=== PATIENT | male | born 1950 | race Caucasian/White ===

== ENCOUNTER → 2017-07-19 | Outpatient (CLI) | payer MEDICARE, OTHER ==
[~2017-07-19] MED LIST: HYDROCODONE-AP1 EAC1; MVI; Z.0.AMBIEN10 MG PO; Z.0.ASPIRIN CHEW81 M PO; Z.0.CALCIUM600 MG PO; Z.0.DILAUDID4 MG; Z.0.FINASTERIDE5 MG PO; Z.0.FLOMAX0.4 MG PO; [UNRECOGNIZED DRUG - OTHER] PO; [UNRECOGNIZED DRUG - OTHER] PO
--- NOTE | 2017-07-24 14:20 | Diagnostic Imaging Report ---
Examination: CT LUMBAR SPINE WITHOUT CONTRAST History: Acute right-sided low back pain; status post fusion surgery. Comparison studies: None Technique: Axial images were obtained through the lumbar spine from T11. Coronal and sagittal reconstructions obtained from the axial data. Intravenous contrast: None Findings: Surgery: Prior decompressive laminectomies from L3 through L5 with bipedicular screws and posterior fixation from L2 through L5. No lucency surrounding the hardware to suggest failure. The usual 5 non-rib bearing lumbar vertebral bodies are present. Alignment: Normal lordosis. No scoliosis. Soft tissues: Atherosclerotic calcification of the abdominal aorta and its branches. Paraspinal muscles: No abnormalities. Sacroiliac joints: Bridging osteophytosis at the anterosuperior aspect of the joints. Vertebrae: No fractures, infection or neoplasm. Degenerative changes: L1-L2 through L3-L4: No abnormalities. L4-L5: Mild left neural foraminal narrowing due to left facet arthropathy. No right foraminal or canal stenosis. L5-S1: No abnormalities. IMPRESSION: 1. Prior lumbar spine surgery without evidence of hardware failure. 2. Mild degenerative changes at L4-L5 without canal or significant (not moderate to severe) foraminal stenosis. Signed by: Dr. Bisi Martinez M.D. on 07/24/2017 2:16 PM
== END ==
LOC: CT 12:35
PROVIDERS: ATTEND Psychiatry & Neurology Clinical Neurophysiology
DX: M54.5 Low back pain (principal)
CPT/HCPCS: 72131

== ENCOUNTER → 2017-08-21 | Outpatient (CLI) | payer MEDICARE, OTHER ==
--- NOTE | 2017-08-21 17:54 | Diagnostic Imaging Report ---
Examination: CT Thoracic Spine without Contrast History: Back pain. Comparison studies: None Technique: Axial images were reformatted obtained through the thoracic spine. Coronal and sagittal reconstructions obtained from the axial data. Intravenous contrast: None Findings: Alignment: Normal kyphosis. No scoliosis. Soft tissues: Atherosclerotic calcification of the thoracic and abdominal aorta. Calcified granulomas in the left upper lobe and calcified adenopathy in the left hilum. These findings are related to prior granulomatous disease. Paraspinal muscles: No abnormalities. Thecal sac: Again demonstrated is a spine stimulator with distal tip located at T10. Vertebrae: No fractures, infection or neoplasm. Partially visualized bilateral pedicle screws at L2. Degenerative changes: Bridging anterior osteophytosis. Additional finding: Partially visualized anterior cervical discectomy and fusion at C6 and C7. IMPRESSION: 1. No acute thoracic spine abnormality. 2. Partially visualized pedicle screws at L2 and spine stimulator with tip at T10. Signed by: Dr. Bisi Martinez M.D. on 08/21/2017 5:51 PM
== END ==
LOC: CT 11:37
PROVIDERS: ATTEND Psychiatry & Neurology Clinical Neurophysiology
DX: M54.6 Pain in thoracic spine (principal)
CPT/HCPCS: 72128

== ENCOUNTER 2018-02-19 21:15 | Observation (INO) | payer MEDICARE, OTHER ==
[~2018-02-19] VITALS: Ht 182.9 cm; Wt 79.4 kg
[2018-02-19] MEDS ORDERED: SODIUM CHLORIDE 0.9% 1000ML 1,000 ML IV STA (21:54)
[2018-02-19] MEDS ORDERED: PROMETHAZINE 12.5MG/ NACL 0.9% 12.5 MG/50 ML BAG IV PRN (22:00)
[2018-02-19] MEDS ORDERED: ONDANSETRON HCL INJ 2 MG/ML VIAL IV PRN ×2 (22:00→23:00)
[2018-02-19 22:18] LABS: BASOPHILS % 0.6 % (0.0-1.0); EOSINOPHILS % 0.6 % (0.0-6.0); HEMATOCRIT 40.6 % (38.2-49.6); HEMOGLOBIN 13.6 g/dL (14.0-18.0); LYMPHOCYTES # (AUTO) 2.1 (1.0-3.2); LYMPHOCYTES % 28.8 % (18.0-39.1); MEAN CORPUSCULAR HEMOGLOBIN 29.1 pg (28-32); MEAN CORPUSCULAR HGB CONC 33.5 g/dL (31-35); MEAN CORPUSCULAR VOLUME 86.9 fL (81-99); MONOCYTES # (AUTO) 0.6 (0.2-0.8); MONOCYTES % 8.7 % (4.4-11.3); NEUTROPHILS # (AUTO) 4.4 (2.1-6.9); PLATELET COUNT 216 x10e3/uL (140-360); RED BLOOD COUNT 4.67 x10e6/uL (4.3-5.7); RED CELL DISTRIBUTION WIDTH 13.1 % (11.7-14.4)
[2018-02-19 22:33] LABS: ALANINE AMINOTRANSFERASE 14 IU/L (0-55); ALBUMIN 4.5 g/dL (3.5-5.0); ALBUMIN/GLOBULIN RATIO 1.6 (0.8-2.0); ALKALINE PHOSPHATASE 60 IU/L (40-150); AMYLASE 73 U/L (25-125); ANION GAP 14.4 mmol/L (8-16); BLOOD UREA NITROGEN 13 mg/dL (7-26); BUN/CREATININE RATIO 13 (6-25); CALCIUM 9.9 mg/dL (8.4-10.2); CARBON DIOXIDE 28 mmol/L (22-29); CHLORIDE 103 mmol/L (98-107); CREATININE, SERUM 1.04 mg/dL (0.72-1.25); EST GLOMERULAR FILTRATION RATE > 60 ML/MIN (60-); GLUCOSE 110 mg/dL (74-118); LIPASE 60 U/L (8-78); MAGNESIUM 2.2 MG/DL (1.3-2.1); POTASSIUM 4.4 mmol/L (3.5-5.1); SODIUM 141 mmol/L (136-145)
--- NOTE | 2018-02-19 22:40 | Diagnostic Imaging Report ---
EXAM: CHEST SINGLE (PORTABLE), AP 1 view INDICATION: Chest tightness COMPARISON: None FINDINGS: LINES/TUBES: None LUNGS: No consolidations or edema. Calcified granuloma left apex. PLEURA: No effusions or pneumothorax. HEART AND MEDIASTINUM: Normal size and contour. BONES AND SOFT TISSUES: No acute findings. Lower cervical spine surgical hardware. IMPRESSION: No acute thoracic abnormality. Signed by: Dr. Martina Malik M.D. on 02/19/2018 10:37 PM
[2018-02-19] MEDS ORDERED: HYDROMORPHONE 1MG/1ML INJ IV PRN (23:00)
[2018-02-19] MEDS ORDERED: SODIUM CHLORIDE FLUSH 10 ML SYR INJ PRN (23:00)
[2018-02-19] MEDS: FAMOTIDINE 20 MG/2 ML VIAL IV SCH (23:00)
[2018-02-19] MEDS ORDERED: LACTULOSE SYRUP 20 GM/30 ML UDC PO PRN (23:00)
[2018-02-19] MEDS ORDERED: ACETAMINOPHEN 325 MG TAB PO PRN (23:00)
[2018-02-19] MEDS ORDERED: ZOLPIDEM TARTRATE 5 MG TAB PO PRN (23:00)
[2018-02-19] MEDS ORDERED: PROMETHAZINE 25MG/ NS 50ML (IV) IV PRN (23:00)
[2018-02-19] MEDS ORDERED: ENALAPRILAT IV INJ 1.25 MG/ML VIAL IV PRN (23:00)
[2018-02-19] MEDS ORDERED: DIPHENHYDRAMINE HCL INJ 50 MG/ML VIAL IV PRN (23:00)
[2018-02-19 23:01] LABS: CREATINE KINASE 166 IU/L (30-200)
[2018-02-20] MEDS: LACTATED RINGER'S 1,000 ML IV SCH ×2 (00:42→06:48)
[2018-02-20] MEDS ORDERED: CLONIDINE HCL 0.2 MG TAB PO PRN (01:45)
[2018-02-20] MEDS: HYDROMORPHONE 1MG/1ML INJ IV PRN ×2 (02:10→14:52)
[2018-02-20] MEDS ORDERED: TAMSULOSIN HCL0.4 MG PO (02:22)
[2018-02-20] MEDS ORDERED: ONDANSETRON ODT8 MG PO (02:22)
[2018-02-20] MEDS ORDERED: DICYCLOMINE HCL20 MG PO (02:22)
[2018-02-20] MEDS ORDERED: SUCRALFATE1 GM PO (02:22)
[2018-02-20] MEDS ORDERED: FINASTERIDE5 MG PO (02:22)
[2018-02-20] MEDS ORDERED: OMEPRAZOLE40 MG PO (02:22)
[2018-02-20 05:26] VITALS: BP 115/58
[2018-02-20 05:50] LABS: CHOL/HDL RATIO 3.1 (3.9-4.7); CHOLESTEROL 115 MD/DL (0-199); CREATINE KINASE 115 IU/L (30-200); HDL CHOLESTEROL 37 MG/DL (40-60); LDL CHOLESTEROL 64 MG/DL (60-130); TRIGLYCERIDES 68 MG/DL (0-149)
[2018-02-20 07:39] VITALS: BP 131/68
[2018-02-20] MEDS ORDERED: TAMSULOSIN HCL 0.4 MG CAP PO SCH (09:00)
[2018-02-20] MEDS ORDERED: ASPIRIN 325 MG TAB EC PO SCH (09:00)
[2018-02-20] MEDS ORDERED: FINASTERIDE 5 MG TAB PO SCH (09:00)
[2018-02-20] MEDS ORDERED: DICYCLOMINE HCL 20 MG TAB PO PRN (09:00)
[2018-02-20] MEDS ORDERED: PANTOPRAZOLE SOD 40 MG TABEC PO SCH (09:30)
[2018-02-20 10:33] VITALS: BP 131/68
[2018-02-20] MEDS: FAMOTIDINE 20 MG/2 ML VIAL IV SCH (11:00)
[2018-02-20 11:23] VITALS: BP 141/74
[2018-02-20 15:16] VITALS: BP 162/70
[2018-02-20 15:21] LABS: CREATINE KINASE MB 2.7 ng/mL (0-5.0)
[2018-02-20] MEDS ORDERED: BUSPIRONE HCL5 MG PO ×2 (15:57→16:07)
[2018-02-20] MEDS ORDERED: SUCRALFATE 1 GM TAB PO SCH (16:30)
--- NOTE | 2018-02-20 21:33 | Discharge Summary ---
Patient of Dr. Herndon and Dr. Roldan. Patient admitted with severe chest pain related to gastroesophageal reflux disease. He was seen by Dr. Tinoco, who recommended discharge with outpatient followup. 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 EGD is scheduled for February 21. He has dysphagia. This has been a chronic finding for him. JUAN ANDERSON MD Job#: [id number] CQ
--- NOTE | 2018-02-21 05:37 | History and Physical ---
Patient of Dr. Roldan and Dr. Herndon. A charming but unfortunate 67-year-old gentleman admitted with chest pain, which he describes as tightness. He has had similar episodes in the past, which he has blamed on esophageal stricture, gastroesophageal reflux. He has had multiple ulcers in the past. He is scheduled to undergo EGD and presumed dilatation on February 21, 2018, and is requesting early discharge. He has had back fusions times 2, one of which failed, history of prostate cancer in the family. He has BPH. Nonsmoker and no alcohol. 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 ALLERGIES: NO KNOWN ALLERGIES. MEDICATIONS: Have included Flomax, nystatin, Proscar, Prilosec, Carafate, omeprazole. He is usually active. REVIEW OF SYSTEMS: Positive for BPH. No heart problems. He has a history of esophageal stricture, ulcers and back pain, which limits him. He has no history of coronary disease. No allergies. No blood problems. PHYSICAL EXAMINATION GENERAL: He is a thin white male in no acute distress. HEENT: Head is normocephalic and atraumatic. Eyes: Extraocular movements intact. SKIN: Turgor is somewhat reduced. LUNGS: Clear. HEART: Regular rhythm. ABDOMEN: Nontender. EXTREMITIES: Nonedematous. IMPRESSION: Esophageal stricture with esophagitis and pain. Angina seems unlikely. Cardiology opinion has been requested by Dr. Tinoco. Will plan to discharge the patient this evening if cleared by cardiology for follow up with Dr. Herndon. I have also placed a call to Dr. Herndon. Job#: [id number] JOHANA
--- NOTE | 2018-02-22 11:52 | Consultation ---
DATE OF CONSULTATION: CARDIOLOGY CONSULTATION REASON FOR CONSULTATION: Chest pain. CONSULTING PHYSICIAN: . HPI: This is a pleasant 67-year-old male that presented with chest tightness. According to the patient he started having chest pain that felt like tightness and burning sensation on the right side of the chest then he decided to come into the emergency room for evaluation. He stated he has been having burning sensation, difficulty swallowing for the last 2 months and he has been scheduled for outpatient EGD by Dr. Herndon. He stated that the chest pain was so painful that he came in for evaluation before his procedure tomorrow. He denies any palpitation, any dizziness, any shortness of breath, any headache or diaphoresis. Troponin times 2 was negative. EKG showed normal sinus rhythm with no ST abnormalities. PAST MEDICAL HISTORY: Esophagitis, dysphagia, GERD, and BPH. PAST SURGICAL HISTORY: Multiple musculoskeletal surgeries, left hip surgery, and appendectomy. FAMILY HISTORY: Positive for prostate cancer. SOCIAL HISTORY: No smoking. No drinking. He lives at home with the . MEDICATIONS: See med list. ALLERGIES: HE IS NOT ALLERGIC TO ANY MEDICATION. REVIEW OF SYSTEMS: Negative except those mentioned above. PHYSICAL EXAMINATION VITAL SIGNS: Temperature 97, heart rate 62, blood pressure 131/68, respiration 19, oxygen saturation 98% on room air. GENERAL: He is awake, alert and oriented times three. HEENT: Mucous membranes moist. NECK: Supple. LUNGS: Bilateral clear to auscultation. CARDIOVASCULAR: S1 and S2 present. ABDOMEN: Soft. NEUROLOGIC: Intact. EXTREMITIES: No edema. LABORATORY DATA: Sodium 141, potassium 4.4, chloride 103, CO2 28. BUN 13, creatinine 1.04, glucose 100. White blood cells 7.21, hemoglobin 13.6, hematocrit 40.6, platelets 216. IMPRESSION 1. Chest pain. 2. Esophagitis. 3. Dysphagia. 4. History of benign prostatic hyperplasia. ASSESSMENT AND PLAN: Pending an echo to assess the LV and the valve function. Will check serial cardiac enzymes. He can follow up as outpatient for possible stress test. Will check a lipid panel. Will continue aspirin and nitrates. Further cardiac workup pending clinical course. Thank you for this consultation. Dictated by Teresa Mcguire NP. Job#: [id number] CEDRIC
== END 2018-02-20 16:24 | disposition home or self-care (01) ==
LOC: ER 21:15 → ERHOLD 22:48 → IMCU 02-20 02:30
PROVIDERS: ADMIT Internal Medicine Pulmonary Disease; ATTEND Internal Medicine Pulmonary Disease
DX: K21.0 Gastro-esophageal reflux disease with esophagitis (principal); K22.2 Esophageal obstruction; Z80.42 Family history of malignant neoplasm of prostate; R07.89 Other chest pain; R13.10 Dysphagia, unspecified; N40.0 Benign prostatic hyperplasia without lower urinary tract symptoms
CPT/HCPCS: 36415 ×2; 71045; 80053; 80061; 82150; 82550 ×2; 82553 ×2; 83690; 83735; 83880; 84484 ×2; 85025; 85379; 93005; 93306; 99284; G0378 ×2; J1170; J2405; J7030; J7120 ×2

== ENCOUNTER 2018-02-25 18:58 | Emergency (ER) | payer MEDICARE, OTHER ==
[~2018-02-25] VITALS: Ht 182.9 cm; Wt 79.4 kg
[~2018-02-25 18:58] MED LIST changes: +BUSPIRONE HCL5 MG PO; +DICYCLOMINE HCL20 MG PO; +FINASTERIDE5 MG PO; +OMEPRAZOLE40 MG PO; +ONDANSETRON ODT8 MG PO; +SUCRALFATE1 GM PO; +TAMSULOSIN HCL0.4 MG PO
[2018-02-25] MEDS ORDERED: MORPHINE SULFATE INJ 4 MG/ML INJ IV STA ×2 (20:08→23:59)
[2018-02-25] MEDS ORDERED: SODIUM CHLORIDE 0.9% 1000ML 1,000 ML IV STA (20:08)
[2018-02-25 20:13] LABS: BASOPHILS % 0.4 % (0.0-1.0); EOSINOPHILS % 0.3 % (0.0-6.0); HEMATOCRIT 39.8 % (38.2-49.6); HEMOGLOBIN 13.2 g/dL (14.0-18.0); LYMPHOCYTES # (AUTO) 1.6 (1.0-3.2); LYMPHOCYTES % 24.1 % (18.0-39.1); MEAN CORPUSCULAR HEMOGLOBIN 28.9 pg (28-32); MEAN CORPUSCULAR HGB CONC 33.2 g/dL (31-35); MEAN CORPUSCULAR VOLUME 87.1 fL (81-99); MONOCYTES # (AUTO) 0.5 (0.2-0.8); MONOCYTES % 7.9 % (4.4-11.3); NEUTROPHILS # (AUTO) 4.6 (2.1-6.9); NEUTROPHILS % 67.2 % (38.7-80.0); PLATELET COUNT 212 x10e3/uL (140-360); RED BLOOD COUNT 4.57 x10e6/uL (4.3-5.7)
[2018-02-25 20:15] LABS: BILIRUBIN,URINE NEGATIVE (NEGATIVE); CLARITY,URINE CLEAR (CLEAR); COLOR,URINE YELLOW (YELLOW); KETONES,URINE NEGATIVE (NEGATIVE); LEUKOCYTE ESTERASE ,URINE NEGATIVE (NEGATIVE); NITRITE,URINE NEGATIVE (NEGATIVE); PROTEIN,URINE DIPSTICK NEGATIVE (NEGATIVE); URINE UROBILINOGEN 0.2 mg/dL (0.2 - 1)
[2018-02-25] MEDS ORDERED: ONDANSETRON HCL INJ 2 MG/ML VIAL IV ONE (20:15)
[2018-02-25 20:26] LABS: MUCUS,URINE FEW (RARE); WBC,URINE (MAN) 0-5 /HPF (0-5)
[2018-02-25 20:28] LABS: ALANINE AMINOTRANSFERASE 13 IU/L (0-55); ALBUMIN 4.4 g/dL (3.5-5.0); ALBUMIN/GLOBULIN RATIO 1.5 (0.8-2.0); ALKALINE PHOSPHATASE 65 IU/L (40-150); AMYLASE 55 U/L (25-125); ANION GAP 13.8 mmol/L (8-16); BLOOD UREA NITROGEN 10 mg/dL (7-26); BUN/CREATININE RATIO 10 (6-25); CALCIUM 9.8 mg/dL (8.4-10.2); CARBON DIOXIDE 28 mmol/L (22-29); CHLORIDE 103 mmol/L (98-107); CREATININE, SERUM 1.03 mg/dL (0.72-1.25); EST GLOMERULAR FILTRATION RATE > 60 ML/MIN (60-); GLUCOSE 104 mg/dL (74-118); LIPASE 38 U/L (8-78); POTASSIUM 3.8 mmol/L (3.5-5.1); SODIUM 141 mmol/L (136-145)
[2018-02-25] MEDS ORDERED: SODIUM CHLORIDE 0.9% 50ML 50 ML ONE (21:29)
[2018-02-25] MEDS ORDERED: IOPAMIDOL 370 MG/ML 200 ML INFUS..BTL INJ ONE (21:30)
--- NOTE | 2018-02-25 23:13 | Diagnostic Imaging Report ---
EXAM: CT ABDOMEN/PELVIS W DATE: 02/25/2018 8:08 PM INDICATION: \S\DIFFUSE ABDOMINAL PAIN WITH GUARDING \S\[id number] \S\2215 \S\Y COMPARISON: 12/07/2011 TECHNIQUE: The abdomen and pelvis were scanned using a multidetector helical scanner. Coronal and sagittal reformations were obtained. Routine protocol performed. IV Contrast: 100 ml Isovue 300/370 FINDINGS: Streak artifact from osseous hardware and left lower quadrant electronic device partially degrades assessment. LOWER THORAX: No consolidations LIVER/BILIARY: Multiple stable low-density liver hypodensities, the majority subcentimeter, likely benign/cysts. No ductal dilatation. GALLBLADDER: Unremarkable SPLEEN: Not enlarged. Incidental splenic calcified granulomas. PANCREAS: Stable mild diffuse main duct dilation measuring up to 4.5 mm at the head. ADRENALS: No nodules KIDNEYS: Symmetric perfusion. No enhancing masses. No hydronephrosis. Nonobstructing right nephrolithiasis, largest 4 mm of the superior pole. GI TRACT: No wall thickening or evidence of obstruction. Diverticulosis. Appendix is not visualized. VESSELS: Moderate atherosclerotic changes. PERITONEUM/RETROPERITONEUM: No free air or fluid LYMPH NODES: No lymphadenopathy REPRODUCTIVE ORGANS/BLADDER: Poorly assessed due to streak artifact from left hip arthroplasty. SOFT TISSUES: No acute findings. Electronic neurostimulator device overlies the left lower quadrant. BONES: Postsurgical changes status post L2-L5 posterior fusion and decompression. IMPRESSION: No acute abnormality in the abdomen or pelvis. Signed by: Dr Katerin Walker MD on 02/25/2018 11:10 PM
[2018-02-26] MEDS ORDERED: ASPIR 8181 MG PO (00:11)
[2018-02-26] MEDS ORDERED: PROMETHAZINE HC25 M1 PO (00:11)
[2018-02-26] MEDS ORDERED: NORCO 10-325 T1 EACH PO (00:11)
[2018-02-26] MEDS ORDERED: ZOLPIDEM TARTRA10 MG PO (00:11)
[2018-02-26 00:50] VITALS: BP 140/75
[2018-02-27] MEDS ORDERED: GI COCKTAIL PO (01:46)
== END 2018-02-26 01:00 | disposition home or self-care (01) ==
LOC: ER 19:02
DX: R10.84 Generalized abdominal pain (principal); R11.0 Nausea; K21.9 Gastro-esophageal reflux disease without esophagitis; G89.29 Other chronic pain
CPT/HCPCS: 36415; 74177; 80053; 81001; 82150; 83690; 85025; 93005; 99284; J2270 ×2; J2405; J7030; Q9967

== ENCOUNTER 2018-02-26 22:14 | Inpatient (IN) | payer MEDICARE, OTHER ==
[~2018-02-26] VITALS: Ht 182.9 cm; Wt 99.8 kg
[~2018-02-26 22:14] MED LIST changes: +ASPIR 8181 MG PO; +NORCO 10-325 T1 EACH PO; +PROMETHAZINE HC25 M1 PO; +ZOLPIDEM TARTRA10 MG PO
[2018-02-26 23:15] LABS: BASOPHILS % 0.5 % (0.0-1.0); EOSINOPHILS # (AUTO) 0.1 (0.0-0.4); EOSINOPHILS % 1.2 % (0.0-6.0); HEMOGLOBIN 12.9 g/dL (14.0-18.0); LYMPHOCYTES # (AUTO) 1.7 (1.0-3.2); LYMPHOCYTES % 28.5 % (18.0-39.1); MEAN CORPUSCULAR HEMOGLOBIN 28.9 pg (28-32); MEAN CORPUSCULAR HGB CONC 32.3 g/dL (31-35); MEAN CORPUSCULAR VOLUME 89.5 fL (81-99); MONOCYTES # (AUTO) 0.4 (0.2-0.8); MONOCYTES % 6.3 % (4.4-11.3); NEUTROPHILS # (AUTO) 3.7 (2.1-6.9); NEUTROPHILS % 63.3 % (38.7-80.0); PLATELET COUNT 200 x10e3/uL (140-360); RED BLOOD COUNT 4.47 x10e6/uL (4.3-5.7)
[2018-02-26 23:36] LABS: ALANINE AMINOTRANSFERASE 13 IU/L (0-55); ALBUMIN 4.4 g/dL (3.5-5.0); ALBUMIN/GLOBULIN RATIO 1.6 (0.8-2.0); ALKALINE PHOSPHATASE 63 IU/L (40-150); ANION GAP 12.2 mmol/L (8-16); BLOOD UREA NITROGEN 7 mg/dL (7-26); BUN/CREATININE RATIO 7 (6-25); CALCIUM 9.5 mg/dL (8.4-10.2); CARBON DIOXIDE 29 mmol/L (22-29); CHLORIDE 105 mmol/L (98-107); CREATINE KINASE 119 IU/L (30-200); CREATININE, SERUM 0.95 mg/dL (0.72-1.25); EST GLOMERULAR FILTRATION RATE > 60 ML/MIN (60-); GLUCOSE 104 mg/dL (74-118); MAGNESIUM 1.9 MG/DL (1.3-2.1); POTASSIUM 3.2 mmol/L (3.5-5.1); SODIUM 143 mmol/L (136-145)
[2018-02-26 23:40] LABS: INR 1.21; PROTHROMBIN TIME 14.4 seconds (11.9-14.5)
[2018-02-27] VITALS (8 sets, daily range): BP systolic 147–167; BP diastolic 51–101
[2018-02-27] MEDS ORDERED: POTASSIUM CHLORIDE 20MEQ/15ML UDC PO ONE (00:30)
[2018-02-27] MEDS ORDERED: PANTOPRAZOLE 40 MG 10ML VIAL IV STA (00:45)
[2018-02-27] MEDS ORDERED: ONDANSETRON HCL INJ 2 MG/ML VIAL IV STA (00:45)
[2018-02-27] MEDS ORDERED: MORPHINE SULFATE 2 MG/ML SYR IV STA (00:45)
[2018-02-27] MEDS ORDERED: MORPHINE SULFATE 2 MG/ML SYR IV PRN (01:00)
[2018-02-27] MEDS: D5.45%NS/KCL 20MEQ 1,000 ML IV SCH ×2 (01:18→11:18)
[2018-02-27] MEDS ORDERED: GI COCKTAIL PO (01:46)
[2018-02-27] MEDS: PANTOPRAZOLE 40 MG 10ML VIAL IV SCH ×2 (09:12→17:14)
[2018-02-27] MEDS: CLONIDINE HCL 0.1 MG/24 HR 1 EA PATCH TOP SCH (09:30)
[2018-02-27] MEDS: FAMOTIDINE 20 MG/2 ML VIAL IV SCH ×2 (09:30→17:14)
--- NOTE | 2018-02-27 11:19 | Diagnostic Imaging Report ---
PROCEDURE: A single AP view of the chest. COMPARISON: 02/19/18 INDICATIONS: ABDOMINAL PAIN FINDINGS: Lines/tubes: None. Lungs: The lungs are well inflated. No focal consolidation. Mild central vascular congestion. Again seen left apical calcified granulomas. Biapical scarring. Pleura: There is no pleural effusion or pneumothorax. Heart and mediastinum: The heart and the mediastinum are unremarkable. Bones: No acute bony abnormality. Cervical spine fusion hardware. IMPRESSION: 1. No change from prior exam. 2. Mild central vascular congestion. No definite focal consolidation. Dictated by: Zelalem Mccartney M.D. on 02/27/2018 at 11:24 Electronically approved by: Zelalem Mccartney M.D. on 02/27/2018 at 11:24
[2018-02-27] MEDS: MORPHINE SULFATE INJ 4 MG/ML INJ IV PRN ×2 (11:25→17:00)
[2018-02-27] MEDS: ONDANSETRON HCL INJ 2 MG/ML VIAL IV PRN ×2 (11:25→17:00)
[2018-02-27] MEDS: SUCRALFATE 1 GM/10 ML SUSP NG SCH ×3 (11:50→21:00)
[2018-02-27] MEDS ORDERED: GADOBENATE DIMEGLUMINE 1 ML IV ONE (12:37)
--- NOTE | 2018-02-27 14:48 | Diagnostic Imaging Report ---
EXAM: MRI of the abdomen with and without contrast. INDICATION: Abdominal pain and weight loss. COMPARISON: CT dated 02/25/2018 TECHNIQUE: Multiplanar and multisequence imaging was performed of the abdomen with and without administration of intravenous contrast. IV Contrast: 15 cc of MultiHance Oral Contrast: None. Medications: None DISCUSSION: LOWER THORAX: Unremarkable. HEPATOBILIARY: Multiple T2 hyperintense, T1 hypointense, nonenhancing hepatic lesions, representing cysts. The largest is adjacent to gallbladder fossa, measuring 2.2 x 1.8 cm (series 5, image 19) and in hepatic dome measuring 1.8 x 1.8 cm (5/6). No biliary ductal dilation. GALLBLADDER: No radio-opaque stones or sludge. No wall thickening. SPLEEN: No splenomegaly. PANCREAS: No focal masses or ductal dilatation. ADRENALS: No adrenal nodules KIDNEYS/URETERS: Kidneys enhance symmetrically. No hydronephrosis. No renal mass. Few tiny bilateral renal cysts, measuring up to 0.6 cm. GI TRACT: Visualized bowel loops are unremarkable. No evidence of bowel obstruction. LYMPH NODES: No lymphadenopathy. VESSELS: Unremarkable. PERITONEUM / RETROPERITONEUM: No free air or fluid. BONES: L2-L5 posterior fusion. SOFT TISSUES: Artifact from left lower quadrant subcutaneous abdominal wall electronic device. IMPRESSION: No acute inflammatory process in the abdomen. Multiple hepatic cysts. Signed by: Dr. Zelalem Mccartney MD on 02/27/2018 2:45 PM
--- NOTE | 2018-02-27 15:24 | Diagnostic Imaging Report ---
EXAM: Right Upper Quadrant Ultrasound INDICATION: Abdominal pain. COMPARISON: Same day abdominal MRI TECHNIQUE: Transverse and longitudinal images of the right upper abdomen were obtained. FINDINGS: Limited study due to bowel gas. Liver: Size: 12.2 cm in the right midclavicular line, normal Appearance: Normal echogenicity, smooth contour Mass: Mildly complex right hepatic lobe cyst with septations, measuring 1.6 x 1.9 x 1.9 cm. Gallbladder: Stones/Sludge: None Wall: 0.3 cm Appearance: No pericholecystic fluid or hydrops. Sonographic Wright's Sign: Negative Bile Ducts: Intrahepatic Ducts: No dilatation Extrahepatic Ducts: Common bile duct measures 0.4 cm, no dilatation Pancreas: Not well visualized. Right Kidney: Size: 10.1 cm Echogenicity: Normal Parenchymal thickness: Normal Collecting system: No hydronephrosis Stones: None Cyst/Mass: None Vessels: Aorta: Visualized portions are normal Inferior Vena Cava: Not well visualized. Main Portal Vein: 0.9 cm, normal size with hepatopetal flow. Free Fluid: No ascites or pleural effusion IMPRESSION: Unremarkable right upper quadrant ultrasound. Of the previously noted hepatic cysts, only one visualized on current exam, measuring 1.9 cm. Signed by: Dr. Zelalem Mccartney MD on 02/27/2018 3:21 PM
[2018-02-27] MEDS ORDERED: SINCALIDE 3 MCG/VIAL INJ ONE (16:11)
[2018-02-27] MEDS: TAMSULOSIN HCL 0.4 MG CAP PO SCH (17:14)
--- NOTE | 2018-02-27 18:54 | Diagnostic Imaging Report ---
Hepatobiliary Scan with Gallbladder Ejection Fraction Clinical information: 67 F with upper abdominal pain x 2 weeks Technique: Following intravenous administration of 5.9 millicuries of Tc-99m mebrofenin, dynamic images of the abdomen in the anterior projection were obtained through 30 minutes. Sincalide (CCK analog) 1.8 micrograms was administered intravenously over 30 minutes with additional imaging for determination of gallbladder ejection fraction. Discussion: Perfusion of the liver is normal. Extraction of tracer by the liver parenchyma is normal. Tracer appears promptly within the biliary tract. The gallbladder begins to fill by 20 minutes post injection of tracer and fills adequately. Tracer is seen in the small bowel during the sincalide infusion. The gallbladder ejection fraction with sincalide is 24% (normal greater than 40%). Impression: 1. Filling of the gallbladder excludes acute cystic duct obstruction/acute cholecystitis. 2. The decreased gallbladder ejection fraction of 24% supports the clinical diagnosis of chronic cholecystitis/gallbladder dyskinesia. Signed by: Dr. Cathy Dawkins M.D. on 02/27/2018 6:51 PM
[2018-02-27] MEDS: ZOLPIDEM TARTRATE 10 MG TAB PO SCH (21:00)
[2018-02-27] MEDS: HEPARIN SOD (PORCINE) 5,000 UNIT/ML VIAL SC SCH (21:00)
[2018-02-28] VITALS (8 sets, daily range): BP systolic 126–168; BP diastolic 61–89
[2018-02-28 05:33] LABS: BASOPHILS % 0.4 % (0.0-1.0); EOSINOPHILS # (AUTO) 0.3 (0.0-0.4); EOSINOPHILS % 5.2 % (0.0-6.0); HEMATOCRIT 33.7 % (38.2-49.6); HEMOGLOBIN 11.1 g/dL (14.0-18.0); LYMPHOCYTES # (AUTO) 1.8 (1.0-3.2); LYMPHOCYTES % 31.9 % (18.0-39.1); MEAN CORPUSCULAR HEMOGLOBIN 29.3 pg (28-32); MEAN CORPUSCULAR HGB CONC 32.9 g/dL (31-35); MEAN CORPUSCULAR VOLUME 88.9 fL (81-99); MONOCYTES # (AUTO) 0.6 (0.2-0.8); MONOCYTES % 11.5 % (4.4-11.3); NEUTROPHILS # (AUTO) 2.8 (2.1-6.9); NEUTROPHILS % 50.8 % (38.7-80.0); PLATELET COUNT 149 x10e3/uL (140-360); RED BLOOD COUNT 3.79 x10e6/uL (4.3-5.7); RED CELL DISTRIBUTION WIDTH 13.2 % (11.7-14.4)
[2018-02-28 05:57] LABS: ALANINE AMINOTRANSFERASE 8 IU/L (0-55); ALBUMIN 3.5 g/dL (3.5-5.0); ALBUMIN/GLOBULIN RATIO 1.8 (0.8-2.0); ALKALINE PHOSPHATASE 49 IU/L (40-150); ANION GAP 9.9 mmol/L (8-16); BLOOD UREA NITROGEN 5 mg/dL (7-26); BUN/CREATININE RATIO 6 (6-25); CALCIUM 8.9 mg/dL (8.4-10.2); CARBON DIOXIDE 29 mmol/L (22-29); CHLORIDE 107 mmol/L (98-107); CREATININE, SERUM 0.86 mg/dL (0.72-1.25); EST GLOMERULAR FILTRATION RATE > 60 ML/MIN (60-); GLUCOSE 120 mg/dL (74-118); LIPASE 24 U/L (8-78); POTASSIUM 3.9 mmol/L (3.5-5.1); SODIUM 142 mmol/L (136-145)
--- NOTE | 2018-02-28 07:10 | Consultation ---
DATE OF CONSULTATION: February 28, 2018 [address]. Dr. Frankie Guillaume 2. Dr. Roldan 3. Dr. Juan Alberto Herndon HISTORY OF PRESENT ILLNESS: Patient is a 67-year-old male, who has complaints of abdominal pain. Says the pain has been present for about 2 weeks since, has been severe at times. Also has a greatly decreased appetite. He says he forces himself to eat. Said the pain is worse after he eats. He previously had upper GI endoscopy, which revealed gastritis. Evaluation in hospital with ultrasound of gallbladder was normal, had a HIDA scan low ejection fraction 24%. Abdominal MRI was essentially normal except for hepatic cyst. Patient has not had any fever. He also has complaint of some constipation, but says he is not eating much. PAST MEDICAL HISTORY: Significant for carcinoma of the prostate. He has implanted pain pump for back pain. MEDICATIONS AT HOME: Aspirin, Bentyl, Capitola, omeprazole, promethazine, Carafate, tamsulosin, Ambien. HE HAS NO KNOWN ALLERGIES. FAMILY HISTORY: Significant for carcinoma of the prostate. SOCIAL HISTORY: Patient does not smoke cigarettes or drink alcohol. REVIEW OF SYSTEMS: As stated above. He has some back pain with previous back surgery. History of enlarged prostate and also some weight loss. EXAM GENERAL: The patient is awake and alert, in no distress. VITAL SIGNS: Normal. HEENT: Reveals no scleral icterus. NECK: Has no masses. LUNGS: Equal breath sounds are clear bilaterally. CARDIAC: Regular rate and rhythm without murmur. ABDOMEN: Soft. There is no distention, no mass. There is pain pump in the left lower quadrant. EXTREMITIES: Have no edema and are warm. NEUROLOGIC: Grossly intact. LABORATORY TESTS: CBC is essentially normal. Chemistries are essentially normal. Normal liver function tests. IMAGING STUDIES: The only significant abnormality is a HIDA scan with low ejection fraction 24%. ASSESSMENT: A 67-year-old male with abdominal pain, which is worse after eating. Most significant findings thus is abnormal HIDA scan. He is scheduled for upper GI and small bowel series today. If this is negative, then he likely may benefit from cholecystectomy. This was explained to the patient. Thank you for asking me to see Mr. Arrieta. Job#: [id number] CQ
[2018-02-28] MEDS: HEPARIN SOD (PORCINE) 5,000 UNIT/ML VIAL SC SCH ×2 (09:00→21:00)
[2018-02-28] MEDS ORDERED: ASPIRIN 81 MG CHEW TAB PO SCH (09:00)
[2018-02-28] MEDS: TAMSULOSIN HCL 0.4 MG CAP PO SCH ×2 (09:00→17:00)
[2018-02-28] MEDS: FAMOTIDINE 20 MG/2 ML VIAL IV SCH ×2 (09:45→17:30)
[2018-02-28] MEDS: D5.45%NS/KCL 20MEQ 1,000 ML IV SCH (09:45)
[2018-02-28] MEDS: PANTOPRAZOLE 40 MG 10ML VIAL IV SCH ×2 (09:45→21:17)
[2018-02-28] MEDS: SUCRALFATE 1 GM/10 ML SUSP NG SCH ×4 (09:45→21:00)
[2018-02-28] MEDS ORDERED: ACETAMINOPHEN 325 MG TAB PO PRN (12:30)
[2018-02-28] MEDS ORDERED: INSULIN REGULAR, HUMAN 100 UNIT/1 ML 3ML VIAL ONE (14:29)
--- NOTE | 2018-02-28 15:33 | Diagnostic Imaging Report ---
PROCEDURE:X-RAY MODIFIED BARIUM SWALLOW COMPARISON:None. INDICATIONS:DYSPHAGIA DISCUSSION:Fluoroscopic examination was performed in conjunction with speech pathology, during swallowing of a variety of thin and thick liquid consistencies. RADIATION DOSE: Fluoroscopy time: 01:06 Dose (KERMA) area product: 71.91 cGycm2 Air, value has been reviewed. It is below the limits set by the radiation protocol committee. FINDINGS: Reduced laryngeal elevation. Mild vallecular residue. Mild to moderate pyriform sinus residue. It clears with coughing and swallowing liquids. No laryngeal penetration or aspiration. CONCLUSION: Reduced laryngeal elevation and vallecular and pyriform sinus residue. No penetration or aspiration. Please see the report from speech pathology for complete details. Dictated by: Júnior Henao M.D. on 02/28/2018 at 15:38 Electronically approved by: Júnior Henao M.D. on 02/28/2018 at 15:38
[2018-02-28] MEDS: ONDANSETRON HCL INJ 2 MG/ML VIAL IV PRN (16:55)
[2018-02-28] MEDS: MORPHINE SULFATE INJ 4 MG/ML INJ IV PRN (16:55)
[2018-02-28] MEDS ORDERED: BISACODYL 10 MG SUPP PR ONE (18:45)
[2018-02-28] MEDS: ZOLPIDEM TARTRATE 10 MG TAB PO SCH (21:00)
[2018-02-28] MEDS: HYDROMORPHONE 2MG/ML 2 MG/ML ML IV PRN (21:18)
[2018-03-01] VITALS (7 sets, daily range): BP systolic 149–193; BP diastolic 71–82
[2018-03-01] MEDS: D5.45%NS/KCL 20MEQ 1,000 ML IV SCH ×2 (01:00→19:02)
[2018-03-01 05:57] LABS: BASOPHILS % 0.5 % (0.0-1.0); EOSINOPHILS # (AUTO) 0.3 (0.0-0.4); EOSINOPHILS % 4.8 % (0.0-6.0); HEMATOCRIT 37.3 % (38.2-49.6); HEMOGLOBIN 12.1 g/dL (14.0-18.0); LYMPHOCYTES # (AUTO) 2.7 (1.0-3.2); LYMPHOCYTES % 40.6 % (18.0-39.1); MEAN CORPUSCULAR HEMOGLOBIN 28.9 pg (28-32); MEAN CORPUSCULAR HGB CONC 32.4 g/dL (31-35); MONOCYTES # (AUTO) 0.6 (0.2-0.8); MONOCYTES % 8.7 % (4.4-11.3); NEUTROPHILS % 45.2 % (38.7-80.0); PLATELET COUNT 174 x10e3/uL (140-360); RED BLOOD COUNT 4.19 x10e6/uL (4.3-5.7); RED CELL DISTRIBUTION WIDTH 13.2 % (11.7-14.4)
[2018-03-01 06:11] LABS: INR 1.23; PROTHROMBIN TIME 14.6 seconds (11.9-14.5)
[2018-03-01 06:12] LABS: PARTIAL THROMBOPLASTIN TIME 28.3 seconds (23.8-35.5)
[2018-03-01 06:19] LABS: ALANINE AMINOTRANSFERASE 9 IU/L (0-55); ALBUMIN 3.8 g/dL (3.5-5.0); ALBUMIN/GLOBULIN RATIO 1.7 (0.8-2.0); ALKALINE PHOSPHATASE 54 IU/L (40-150); ANION GAP 9.6 mmol/L (8-16); BLOOD UREA NITROGEN < 5 mg/dL (7-26); CALCIUM 9.2 mg/dL (8.4-10.2); CARBON DIOXIDE 29 mmol/L (22-29); CHLORIDE 106 mmol/L (98-107); CREATININE, SERUM 0.86 mg/dL (0.72-1.25); EST GLOMERULAR FILTRATION RATE > 60 ML/MIN (60-); GLUCOSE 94 mg/dL (74-118); POTASSIUM 3.6 mmol/L (3.5-5.1); SODIUM 141 mmol/L (136-145)
[2018-03-01 06:20] LABS: BUN/CREATININE RATIO 6 (6-25)
[2018-03-01] MEDS: SUCRALFATE 1 GM/10 ML SUSP NG SCH ×4 (07:30→21:50)
[2018-03-01] MEDS: FAMOTIDINE 20 MG/2 ML VIAL IV SCH ×2 (08:26→17:39)
[2018-03-01] MEDS: PANTOPRAZOLE 40 MG 10ML VIAL IV SCH ×2 (08:26→21:50)
[2018-03-01] MEDS: TAMSULOSIN HCL 0.4 MG CAP PO SCH ×2 (08:27→17:39)
[2018-03-01] MEDS: HEPARIN SOD (PORCINE) 5,000 UNIT/ML VIAL SC SCH (08:27)
[2018-03-01] MEDS: CLONIDINE HCL 0.1 MG/24 HR 1 EA PATCH TOP SCH (11:45)
[2018-03-01] MEDS ORDERED: BUPIVACAINE HCL 0.5% INJ 30 ML VIAL INJ ONE (14:09)
[2018-03-01] MEDS ORDERED: MIDAZOLAM HCL 2 MG/2 ML VIAL ONE (14:39)
[2018-03-01] MEDS ORDERED: FENTANYL CITRATE/PF 100MCG/2 ML INJ ONE ×2 (14:39→16:45)
[2018-03-01] MEDS ORDERED: HYDROCODONE/APAP 5MG-325MG TAB PO PRN (16:00)
[2018-03-01] MEDS ORDERED: SODIUM CHLORIDE 0.9% 1000ML 1,000 ML IV SCH (16:00)
[2018-03-01] MEDS ORDERED: ONDANSETRON HCL INJ 2 MG/ML VIAL IV PRN (16:00)
[2018-03-01] MEDS ORDERED: MORPHINE SULFATE INJ 4 MG/ML INJ IV PRN (16:00)
[2018-03-01] MEDS ORDERED: HYDROCODONE/APAP 10MG-325MG TAB PO PRN (16:15)
[2018-03-01] MEDS ORDERED: HYDROMORPHONE 1MG/1ML INJ ONE (16:32)
[2018-03-01] MEDS ORDERED: LIDOCAINE HCL 2% LOCAL INJ 5 ML SDV VIAL INJ ONE (16:33)
[2018-03-01] MEDS ORDERED: NEOSTIGMINE 5 MG/5ML SYR ONE (16:33)
[2018-03-01] MEDS ORDERED: ROCURONIUM BROMIDE 10 MG/ML 5ML VIAL ONE (16:33)
[2018-03-01] MEDS ORDERED: SEVOFLURANE INHAL SOLN 250 ML PEN BTL ONE (16:33)
[2018-03-01] MEDS ORDERED: PROPOFOL IV EMULSION 10 MG/ML 20 ML VIAL ONE (16:33)
[2018-03-01] MEDS ORDERED: DEXAMETHASONE SOD PHOS INJ 4 MG/ML VIAL ONE (16:33)
[2018-03-01] MEDS ORDERED: GLYCOPYRROLATE INJ 1MG/ 5 ML SYR ONE (16:33)
[2018-03-01] MEDS ORDERED: CEFAZOLIN SOD 1 GM VIAL ONE (16:33)
[2018-03-01] MEDS ORDERED: ONDANSETRON HCL INJ 2 MG/ML VIAL ONE (16:33)
[2018-03-01] MEDS ORDERED: ACETAMINOPHEN 1000 MG/100 ML IV ONE (16:33)
--- NOTE | 2018-03-01 16:41 | Operative Report ---
DATE OF PROCEDURE: March 01, 2018 PREOPERATIVE DIAGNOSIS: Chronic cholecystitis. POSTOPERATIVE DIAGNOSIS: Chronic cholecystitis. PROCEDURES 1. Diagnostic laparoscopy. 2. Laparoscopic cholecystectomy. MEDICAL GENETICS DIRECTOR: None. ANESTHESIA: General endotracheal. INDICATIONS AND FINDINGS: Patient is a 67-year-old male who has had persistent complaints of epigastric pain that occurs after eating. Workup revealed abnormal HIDA scan with low ejection fraction. At surgery, the patient had a gallbladder with adhesions involving the omentum and duodenum over the neck and fundus of the gallbladder. Cystic duct was about 2 mm in diameter. Common bile duct was about 5 mm in diameter. Liver had some benign appearing cysts on it. Otherwise, it appeared normal. The stomach otherwise appeared normal. Lower abdomen appeared normal without adhesions. The bowel duct was seen and appeared normal. TECHNIQUE: After adequate general endotracheal anesthesia with the patient in the supine position, the abdomen was prepped and draped in a sterile fashion with [place] solution. Skin in the umbilicus was infiltrated with 0.5% Marcaine. An incision was made in the umbilicus. Abdominal wall was elevated and Veress needle was introduced. Pneumoperitoneum was then created. A 10-mm trocar and cannula was then passed through the umbilical wound. Laparoscopic camera was introduced. Initial laparoscopy revealed liver had some small benign appearing cysts with another cyst adjacent to the gallbladder. Stomach appeared normal. Lower abdomen appeared normal. A 10-mm trocar and cannula was placed in the epigastrium and two a 5-mm trocars and cannulas were placed in the right upper quadrant. These were placed under direct vision. Fundus of the gallbladder was grasped and retracted superiorly. There were adhesions over the neck and fundus of the gallbladder involving the omentum and duodenum. These were lysed staying close to the gallbladder. The neck of the gallbladder was grasped and retracted laterally. Peritoneum over the neck of the gallbladder was incised. The gallbladder and cystic duct junction was dissected free. Cystic artery was also dissected free. The neck of the gallbladder completely dissected free. The cystic artery was divided between Hemoclips close to the gallbladder. Cystic duct also divided between Hemoclips with 3 clips left on the common bile duct side. The gallbladder was dissected free from the liver using scissors and electrocautery. Once it was entirely free, it was placed into an Endopouch and brought out through the epigastric cannula. There were no stones palpable. Gallbladder bed was inspected for hemostasis. There was one point which was bleeding, which was controlled with electrocautery. Hemostasis achieved. The peritoneal cavity was irrigated with saline. All fluid aspirated and inspected for hemostasis, which was seen to be adequate. Instruments and cannulas were then removed. Pneumoperitoneum was evacuated. Wounds were then closed. Fascia in the umbilical and epigastric wound closed with 0 Vicryl. Skin to all wounds closed with rebeca. Sterile dressings applied to each wound. The patient tolerated the procedure well. Estimated blood loss was 10 mL. There were no complications. All counts were correct. Patient was taken to the recovery room in satisfactory condition. Job#: [id number] RI cc:MD AARON NYE M.D. HOWARD BERNSTEIN, M.D.
[2018-03-01] MEDS: HYDROMORPHONE 2MG/ML 2 MG/ML ML IV PRN (21:50)
[2018-03-01] MEDS: ZOLPIDEM TARTRATE 10 MG TAB PO SCH (22:50)
[2018-03-02] VITALS (9 sets, daily range): BP systolic 117–154; BP diastolic 61–79
[2018-03-02] MEDS: SUCRALFATE 1 GM/10 ML SUSP NG SCH ×4 (07:42→21:00)
[2018-03-02] MEDS: TAMSULOSIN HCL 0.4 MG CAP PO SCH ×2 (08:10→16:42)
[2018-03-02] MEDS: FAMOTIDINE 20 MG/2 ML VIAL IV SCH ×2 (08:10→16:42)
[2018-03-02] MEDS: PANTOPRAZOLE 40 MG 10ML VIAL IV SCH ×2 (08:10→21:00)
[2018-03-02] MEDS: METOPROLOL TARTRATE 25 MG TAB PO SCH (16:45)
[2018-03-02] MEDS: ASPIRIN 81 MG ENTERIC COATED PO SCH (21:00)
[2018-03-02] MEDS: ZOLPIDEM TARTRATE 10 MG TAB PO SCH (21:00)
[2018-03-03] VITALS: BP_SYST 129; BP_SYST 163; BP_DIAS 69; BP_DIAS 78
[2018-03-03 04:00] VITALS: BP 163/78
[2018-03-03 05:57] LABS: BASOPHILS % 0.4 % (0.0-1.0); EOSINOPHILS # (AUTO) 0.3 (0.0-0.4); EOSINOPHILS % 3.4 % (0.0-6.0); HEMATOCRIT 35.8 % (38.2-49.6); HEMOGLOBIN 11.5 g/dL (14.0-18.0); LYMPHOCYTES # (AUTO) 2.4 (1.0-3.2); LYMPHOCYTES % 32.2 % (18.0-39.1); MEAN CORPUSCULAR HEMOGLOBIN 28.6 pg (28-32); MEAN CORPUSCULAR HGB CONC 32.1 g/dL (31-35); MEAN CORPUSCULAR VOLUME 89.1 fL (81-99); MONOCYTES # (AUTO) 0.7 (0.2-0.8); MONOCYTES % 9.3 % (4.4-11.3); NEUTROPHILS % 54.6 % (38.7-80.0); PLATELET COUNT 165 x10e3/uL (140-360); RED BLOOD COUNT 4.02 x10e6/uL (4.3-5.7); RED CELL DISTRIBUTION WIDTH 13.2 % (11.7-14.4)
[2018-03-03 06:18] LABS: ANION GAP 10.9 mmol/L (8-16); BLOOD UREA NITROGEN 9 mg/dL (7-26); BUN/CREATININE RATIO 11 (6-25); CALCIUM 9.1 mg/dL (8.4-10.2); CARBON DIOXIDE 29 mmol/L (22-29); CHLORIDE 105 mmol/L (98-107); CREATININE, SERUM 0.85 mg/dL (0.72-1.25); EST GLOMERULAR FILTRATION RATE > 60 ML/MIN (60-); GLUCOSE 92 mg/dL (74-118); POTASSIUM 3.9 mmol/L (3.5-5.1); SODIUM 141 mmol/L (136-145)
[2018-03-03] MEDS: SUCRALFATE 1 GM/10 ML SUSP NG SCH ×2 (07:30→11:30)
[2018-03-03] MEDS: FAMOTIDINE 20 MG/2 ML VIAL IV SCH (08:05)
[2018-03-03] MEDS: TAMSULOSIN HCL 0.4 MG CAP PO SCH (08:05)
[2018-03-03] MEDS: PANTOPRAZOLE 40 MG 10ML VIAL IV SCH (08:10)
[2018-03-03] MEDS: METOPROLOL TARTRATE 25 MG TAB PO SCH (08:10)
[2018-03-03 08:26] VITALS: BP 149/72
[2018-03-03] MEDS: ASPIRIN 81 MG ENTERIC COATED PO SCH (09:00)
[2018-03-03 10:28] VITALS: BP 149/72
[2018-03-03 12:03] VITALS: BP 140/79
[2018-03-03] MEDS ORDERED: METOPROLOL TART25 MG PO (15:27)
--- NOTE | 2018-03-03 15:47 | Discharge Summary ---
FINAL DIAGNOSES 1. Abdominal pain. 2. History of carcinoma of the prostate. ADMISSION HISTORY AND HOSPITAL COURSE: Mr. Arrieta is a 67-year-old male who was admitted through the emergency room with the complaints of abdominal pain. The patient had diagnosis of acute gastritis. Surgery and GI consult was called. Dr. Joseph evaluated the patient and the patient underwent laparoscopic cholecystectomy. Post procedure, the patient has been doing well. His blood pressure was running on the higher side. The patient was given Clonidine postoperatively. I discontinued the Clonidine. I discontinued the fluid. Blood pressure has been better, still on the higher side. I have also started the patient on metoprolol 12.5 mg b.i.d. and since then the blood pressure has been stable. I am discharging the patient today to follow up with his primary care physician. I am giving him a 2-week supply of metoprolol to take for blood pressure. He will continue the rest of his home medications. Discharge medication list attached. PEREZ MONCADA MD Job#: [id number]
== END 2018-03-03 15:53 | disposition home or self-care (01) | DRG 419 ==
LOC: ER 22:14 → ERHOLD 02-27 01:10 → MED/SURG3 02-27 02:53
PROVIDERS: ADMIT Internal Medicine Pulmonary Disease; ATTEND Internal Medicine Pulmonary Disease
PROC: 0WJJ4ZZ Inspection of Pelvic Cavity, Percutaneous Endoscopic Approach (ICD-10-PCS; 2018-03-01)
PROC: 0FT44ZZ Resection of Gallbladder, Percutaneous Endoscopic Approach (ICD-10-PCS; principal; 2018-03-01 15:00)
DX: K81.1 Chronic cholecystitis (principal); K29.70 Gastritis, unspecified, without bleeding; K76.89 Other specified diseases of liver; G47.33 Obstructive sleep apnea (adult) (pediatric); G47.00 Insomnia, unspecified; E87.6 Hypokalemia; K21.0 Gastro-esophageal reflux disease with esophagitis
CPT/HCPCS: 36415; 71045; 74183; 74230; 76705; 78227; 80048; 80053; 82550; 82553; 83605; 83690; 83735; 84484; 85025; 85610; 85730; 88304; 93005; 99284; A9537; J0690; J1100; J1170; J1644; J2001; J2250; J2270; J2405; J2805

== ENCOUNTER 2018-03-07 10:01 | Outpatient (RCR) | payer MEDICARE, OTHER ==
[~2018-03-07 10:01] MED LIST changes: +GI COCKTAIL PO; +METOPROLOL TART25 MG PO
== END 2018-03-29 ==
LOC: ST 10:01
PROVIDERS: ATTEND Internal Medicine Pulmonary Disease
DX: R13.13 Dysphagia, pharyngeal phase (principal); R10.9 Unspecified abdominal pain
CPT/HCPCS: 92526; 92610; 97139; G8996; G8997; G8998

== ENCOUNTER 2018-03-07 18:33 | Emergency (ER) | payer MEDICARE, OTHER ==
[~2018-03-07] VITALS: Ht 182.9 cm; Wt 79.4 kg
[2018-03-07] MEDS ORDERED: ONDANSETRON HCL INJ 2 MG/ML VIAL IM ONE (19:00)
[2018-03-07 19:18] LABS: BILIRUBIN,URINE NEGATIVE (NEGATIVE); CLARITY,URINE SL CLOUDY (CLEAR); COLOR,URINE YELLOW (YELLOW); KETONES,URINE NEGATIVE (NEGATIVE); LEUKOCYTE ESTERASE ,URINE NEGATIVE (NEGATIVE); NITRITE,URINE NEGATIVE (NEGATIVE); PROTEIN,URINE DIPSTICK NEGATIVE (NEGATIVE); URINE UROBILINOGEN 0.2 mg/dL (0.2 - 1)
[2018-03-07 19:32] LABS: EPITHELIAL CELLS,URINE RARE /LPF; MUCUS,URINE MODERATE (RARE); RBC,URINE 0-5 /HPF (0-5)
== END 2018-03-07 22:16 | disposition left against medical advice (07) ==
LOC: ER 18:33
DX: R10.84 Generalized abdominal pain (principal); K21.9 Gastro-esophageal reflux disease without esophagitis; M54.9 Dorsalgia, unspecified; G89.29 Other chronic pain; Z87.442 Personal history of urinary calculi
CPT/HCPCS: 81001; 93005

== ENCOUNTER 2018-06-14 15:25 | Emergency (ER) | payer MEDICARE, OTHER ==
[~2018-06-14] VITALS: Ht 182.9 cm; Wt 79.4 kg
--- OUTSIDE RECORDS SUMMARY | 2018-06-14 15:28 | XMS REPORT | Clinical Summary ---
Author Author [facility] Organization [facility] Address Unknown Phone Unavailable Care Team Providers Care [employer] Salesperson Name Role Phone Adalberto Buckner DO PCP Allergies No Known Allergies Medications End Date Status Medication Sig Dispensed Refills Start Date Active promethazine (PHENERGAN) promethazine 0 12.5 MG suppository Active GI COCKTAIL HMTW Twice A Day 0 Active psyllium husk (METAMUCIL) Take by 0 3.4 gram/5.4 gram powder mouth. Active HYDROcodone-acetaminophen Take 1 tablet 0 (NORCO) 10-325 mg per by mouth tablet every 6 (six) hours as needed for moderate pain. Active bisacodyl (DULCOLAX) 5 mg Take 5 mg by 0 EC tablet mouth daily as needed for constipation. Active omeprazole (PriLOSEC) 40 Take 40 mg by 0 MG capsule mouth daily. Active finasteride (PROSCAR) 5 Take 5 mg by 0 mg tablet mouth daily. Active tamsulosin (FLOMAX) 0.4 Take 0.4 mg 0 mg capsule by mouth 2 (two) times a day. Active zolpidem (AMBIEN) 10 mg Take 10 mg by 0 tablet mouth nightly as needed for sleep. 04/07/2018 sucralfate (CARAFATE) 100 Take 10 mL (1 1200 mL 0 mg/mL suspension g total) by 8 mouth 4 (four) times a day for 30 days. 03/14/2018 Discontinued dicyclomine (BENTYL) 10 Bentyl 10 mg 0 MG capsule capsule Take 1 capsule by oral route. 03/14/2018 Discontinued aspirin-calcium carbonate aspirin 81 mg 0 81 mg-300 mg calcium(777 tablet mg) tablet Take by oral route. 03/14/2018 Discontinued finasteride (PROSCAR) 5 finasteride 5 0 mg tablet mg tablet TAKE 1 TABLET BY MOUTH ONCE A DAY 03/14/2018 Discontinued HYDROcodone-acetaminophen 0 (NORCO) 10-325 mg per tablet 03/14/2018 Discontinued omeprazole (PriLOSEC) 40 omeprazole 40 0 MG capsule mg capsule,delay ed release 03/14/2018 Discontinued tamsulosin (FLOMAX) 0.4 tamsulosin 0 mg capsule 0.4 mg capsule TAKE 1 CAPSULE BY MOUTH TWICE DAILY 03/14/2018 Discontinued ergocalciferol, vitamin Take by 0 D2, (VITAMIN D2 ORAL) mouth. 03/14/2018 Discontinued calcium acetate (PHOSLO) Take 1,334 mg 0 667 mg capsule by mouth 3 (three) times a day with meals. 03/14/2018 Discontinued bisacodyl (DULCOLAX) 5 mg Take 5 mg by 0 EC tablet mouth daily as needed for constipation. 03/14/2018 Discontinued zolpidem (AMBIEN) 10 mg Take 10 mg by 0 tablet mouth nightly as needed for sleep. 03/18/2018 Discontinued dicyclomine (BENTYL) 10 Take 10 mg by 0 MG capsule mouth daily. 03/18/2018 Discontinued lidocaine/maalox (GI Take 10 mL by 1200 mL 0 COCKTAIL) 35 ml mouth 4 8 suspension suspension (four) times a day for 30 days. 04/17/2018 hyoscyamine Take 1 tablet 120 tablet 0 (ANASPAZ,LEVSIN) 0.125 mg (0.125 mg 8 tablet total) by mouth every 6 (six) hours for 30 days. 04/17/2018 apixaban (ELIQUIS) 5 mg Take 1 tablet 60 tablet 0 201 tablet (5 mg total) 8 by mouth 2 (two) times a day for 30 days. 03/25/2018 ALPRAZolam (XANAX) 0.25 Take 1 tablet 20 tablet 0 03/18/201 MG tablet (0.25 mg 8 total) by mouth 3 (three) times a day as needed for anxiety for up to 20 doses. 03/31/2018 dicyclomine (BENTYL) 20 Take 1 tablet 10 tablet 0 201 mg tablet (20 mg total) 8 by mouth 2 (two) times a day for 5 days. 03/31/2018 ondansetron (ZOFRAN) 4 MG Take 1 tablet 20 tablet 0 tablet (4 mg total) 8 by mouth every 6 (six) hours for 5 days. Active Problems Problem Noted Date Chronic abdominal pain 04/22/2018 Last Assessment & Plan: E. CTA of C/A/P from 03/26/18 reviewed by me suggests no evidence of mesenteric artery ischemia. ? pancreas and bile duct dilation. Plan: MRCP and referral to Dr. Mele Alves. 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 Abnormal liver enzymes 03/13/2018 Encounters Care Team Description Date Type Specialty Todd Anthony MD Chronic abdominal pain 04/29/2018 Hospital Radiology Encounter Todd Anthony MD Chronic abdominal pain (Primary Dx) 04/22/2018 Office Visit Cardiovascular Nesha Baumann MA 04/05/2018 Telephone Gastroenterology Ryan Valencia MD Periumbilical abdominal pain (Primary Dx) 03/27/2018 Office Visit Gastroenterology Bridget Green MD Generalized abdominal pain (Primary Dx); Diverticulosis of intestine without bleeding, unspecified intestinal tract location 03/26/2018 Emergency Emergency Medicine Agnes Bay RN 03/26/2018 Telephone Gastroenterology Alondra Lucia MA 03/26/2018 Telephone Gastroenterology Ag[place] Bay, JONNATHAN 03/25/2018 Telephone Gastroenterology Homer Ba MD Nguyen, Julia Joglekar, Swati, MD Mesenteric angina (Primary Dx); Other pulmonary embolism without acute cor pulmonale, unspecified chronicity; PE (pulmonary thromboembolism); Abnormal liver enzymes 03/14/2018 [facility] General Internal Medicine - Encounter 03/18/2018 José Luis Interiano MD Periumbilical abdominal pain; Atherosclerosis of abdominal aorta; Weight loss; Early satiety 03/14/2018 Hospital Radiology Encounter Ryan Valencia MD Results (CTA findings of ) 03/14/2018 Documentation Gastroenterology Ryan Valencia MD Periumbilical abdominal pain (Primary Dx); Atherosclerosis of abdominal aorta; Weight loss; Early satiety 03/13/2018 Office Visit Gastroenterology Hang Zamarripa MD Dyspepsia (Primary Dx); Generalized abdominal pain; Transaminitis 03/08/2018 Emergency Emergency Medicine after 06/13/2017 Immunizations Name Dates Previously Given Next Due Pneumococcal Conjugate 03/18/2018 [facility] Social History Date Tobacco Use Types Packs/Day Years Used Never Smoker Smokeless Tobacco: Never Used Alcohol Use Drinks/Week oz/Week Comments No Sex Assigned at Date Recorded Not on file Industry Job Start Date Occupation Not on file Not on file Not on file Travel End Travel History Travel Start No recent travel history available. Last Filed Vital Signs Time Taken Vital Sign Reading 04/29/2018 6:00 PM CDT Blood Pressure 166/73 04/29/2018 6:00 PM CDT Pulse 81 04/22/2018 3:05 PM CDT Temperature 36.7 C (98 F) 04/29/2018 6:00 PM CDT Respiratory Rate 17 03/26/2018 8:15 PM CDT Oxygen Saturation 98% - Inhaled Oxygen - Concentration 04/22/2018 3:05 PM CDT Weight 72.6 kg (160 lb) 04/22/2018 3:05 PM CDT Height 182.9 cm (6') 04/22/2018 3:05 PM CDT Body Mass Index 21.7 Plan of Treatment Care Team Description Date Type Specialty Melquiades Wilson MD [address] [facility] [address] [place], [place] [id number] 07/08/2018 Office Visit Neurosurgery Ryan Valencia MD [address] [facility] [place] [place], [place] [id number] 07/10/2018 Office Visit Gastroenterology Health Maintenance Due Date Last Done Comments SHINGRIX VACCINE (1 of 2) 1999 ZOSTER VACCINE 2009 PNEUMOCOCCAL 2014 POLYSACCHARIDE VACCINE AGE 65 AND OVER INFLUENZA VACCINE 02/27/2018 COLON CANCER SCREENING 07/30/2022 07/30/2012 PNEUMOCOCCAL-13 Completed 03/18/2018 Implants Device Identifier Shelf Expiration Date Model / Serial / Lot Implanted Type Area Manufactur er Pain Mgmt Implantable Devices Pain Mgmt Implantabl e Devices Procedures Comments Procedure Name Priority Date/Time Associated Diagnosis MRI CHOLANGIOGRAM W WO Routine 04/29/2018 Chronic abdominal pain CONTRAST 7:04 PM CDT ESTIMATED GFR Routine 04/29/2018 6:25 PM CDT POC CREATININE Routine 04/29/2018 6:[address] ANGIOGRAM CHEST STAT 03/26/2018 ABDOMEN PELVIS W AND OR 6:30 PM CDT WITHOUT CONTRAST AST (SGOT) STAT 03/26/2018 6:25 PM CDT ALT (SGPT) STAT 03/26/2018 6:25 PM CDT POTASSIUM LEVEL STAT 03/26/2018 6:25 PM CDT URINALYSIS SCREEN AND STAT 03/26/2018 MICROSCOPY, WITH REFLEX 5:04 PM CDT TO CULTURE URINE CULTURE STAT 03/26/2018 5:00 PM CDT MANUAL DIFFERENTIAL STAT 03/26/2018 2:09 PM CDT ZZESTIMATED GFR STAT 03/26/2018 2:09 PM CDT LIPASE LEVEL STAT 03/26/2018 2:09 PM CDT COMPREHENSIVE METABOLIC STAT 03/26/2018 PANEL 2:09 PM CDT CBC WITH PLATELET AND STAT 03/26/2018 DIFFERENTIAL 2:[address] ENTEROGRAPHY STAT 03/17/2018 11:23 AM CDT NM CARDIAC SHUNT Routine 03/15/2018 EVALUATION 5:11 PM CDT ECHOCARDIOGRAM 2D Routine 03/15/2018 COMPLETE W MMODE SPECTRAL 8:12 AM CDT COLOR DOPPLER ([id number]) US DUPLEX VENOUS LOWER STAT 03/14/2018 EXTREMITY BILATERAL 9:29 PM CDT TROPONIN Timed 03/14/2018 3:57 PM CDT NM LUNG VENTILATION STAT 03/14/2018 PERFUSION 3:35 PM CDT SC CRITICAL CARE, E/M Routine 03/14/2018 30-74 MINUTES 2:27 PM CDT ZZESTIMATED GFR STAT 03/14/2018 2:05 PM CDT PROTHROMBIN TIME WITH INR STAT 03/14/2018 2:05 PM CDT PARTIAL THROMBOPLASTIN STAT 03/14/2018 TIME (PTT) 2:05 PM CDT B NATRIURETIC PEPTIDE STAT 03/14/2018 2:05 PM CDT TROPONIN STAT 03/14/2018 2:05 PM CDT COMPREHENSIVE METABOLIC STAT 03/14/2018 PANEL 2:05 PM CDT HC COMPLETE BLD COUNT STAT 03/14/2018 W/AUTO DIFF 2:05 PM CDT ECG 12-LEAD STAT 03/14/2018 1:[address] ANGIOGRAM ABDOMEN W WO Routine 03/14/2018 Periumbilical abdominal CONTRAST 9:25 AM CDT pain Atherosclerosis of abdominal aorta Weight loss Early satiety CT ABDOMEN PELVIS W STAT 03/08/2018 CONTRAST 8:51 PM CDT LACTIC ACID LEVEL, SEPSIS STAT 03/08/2018 - NOW AND REPEAT 2X EVERY 7:47 PM CDT 3 HOURS ALCOHOL LEVEL, BLOOD STAT 03/08/2018 7:47 PM CDT URINALYSIS SCREEN AND STAT 03/08/2018 MICROSCOPY, WITH REFLEX 5:56 PM CDT TO CULTURE URINE CULTURE STAT 03/08/2018 5:56 PM CDT ZZESTIMATED GFR STAT 03/08/2018 4:27 PM CDT LIPASE LEVEL STAT 03/08/2018 4:27 PM CDT COMPREHENSIVE METABOLIC STAT 03/08/2018 PANEL 4:27 PM CDT HC COMPLETE BLD COUNT STAT 03/08/2018 W/AUTO DIFF 4:27 PM CDT after 06/13/2017 Results * MRI CHOLANGIOGRAM W WO CONTRAST (04/29/2018 7:04 PM CDT) Narrative Performed At [facility] EXAMINATION:MRI CHOLANGIOGRAM W WO CONTRAST CLINICAL HISTORY:R10.9 Unspecified abdominal pain, G89.29 Other chronic pain, MRCP eval of hepato- pancreat o-biliary dilation TECHNIQUE: Multiplanar T2-weighted MR images of the abdomen were obtained without contrast. The absence of intravenous contrast reduces the sensitivity of detecting solid organ disease.MRCP images were obtained with 3-D reconstructions on the acquisition scanner under concurrent supervision. COMPARISON:CT March 26, 2018, March 17, 2018. IMPRESSION: 1.Cholecystectomy. MRCP sequences demonstrates a common bile duct measuring up to 8 mm in diameter which is within normal limits. There are no intraluminal filling defects involving the common bile duct. Intrahepatic bile ducts are of normal caliber. The pancreatic duct is of normal caliber with a maximal diameter of 3 mm. 2.Multiple small hepatic cysts. Largest cysts in the right hepatic lobe measures 1.7 cm anteriorly and another more inferiorly in the right hepatic lobe measures 2.1 cm. 3.Artifact in the upper abdomen relating to metallic hardware/stimulator device overlying the left abdomen. 4.Portal vein and hepatic veins are patent. Abdominal aorta is of normal caliber. No retroperitoneal lymphadenopathy. 5.No hydronephrosis. Visualized segments of the pancreas appear normal. 6.No ascites. 7.Lumbar spine hardware. SUMMARY: 1. The common bile duct is of normal caliber with no intraluminal filling defects. No intrahepatic biliary distention. Cholecystectomy. The pancreatic duct is of normal caliber. 2.Scattered hepatic cysts. 3.Artifact involving the midline and left abdomen secondary to stimulator device. [facility]-[id number] Procedure Note Interface, Radiology Results Incoming - 04/29/2018 8:30 PM CDT EXAMINATION: MRI CHOLANGIOGRAM W WO CONTRAST CLINICAL HISTORY: R10.9 Unspecified abdominal pain, G89.29 Other chronic pain, MRCP eval of hepato- pancreat o-biliary dilation TECHNIQUE: Multiplanar T2-weighted MR images of the abdomen were obtained without contrast. The absence of intravenous contrast reduces the sensitivity of detecting solid organ disease. MRCP images were obtained with 3-D reconstructions on the acquisition scanner under concurrent supervision. COMPARISON: CT March 26, 2018, March 17, 2018. IMPRESSION: 1. Cholecystectomy. MRCP sequences demonstrates a common bile duct measuring up to 8 mm in diameter which is within normal limits. There are no intraluminal filling defects involving the common bile duct. Intrahepatic bile ducts are of normal caliber. The pancreatic duct is of normal caliber with a maximal diameter of 3 mm. 2. Multiple small hepatic cysts. Largest cysts in the right hepatic lobe measures 1.7 cm anteriorly and another more inferiorly in the right hepatic lobe measures 2.1 cm. 3. Artifact in the upper abdomen relating to metallic hardware/stimulator device overlying the left abdomen. 4. Portal vein and hepatic veins are patent. Abdominal aorta is of normal caliber. No retroperitoneal lymphadenopathy. 5. No hydronephrosis. Visualized segments of the pancreas appear normal. 6. No ascites. 7. Lumbar spine hardware. SUMMARY: 1. The common bile duct is of normal caliber with no intraluminal filling defects. No intrahepatic biliary distention. Cholecystectomy. The pancreatic duct is of normal caliber. 2. Scattered hepatic cysts. 3. Artifact involving the midline and left abdomen secondary to stimulator device. [facility]-[id number] Performing Organization Address City/[facility]alscode Phone Number [facility] [address] [place] [address] * Estimated GFR (04/29/2018 6:25 PM CDT) Estimated GFR 87 mL/min/1.73 m2 [facility] DEPARTMENT OF Comment: PATHOLOGY AND CatergoryUnitsInte GENOMIC MEDICINE rpretation G1 >=90 Normal or high G2 60-89Mildly decreased [id number] Mildly to moderately decreased [id number] Moderately to severely decreased G4 15-29Severely decreased G5 <15Kidney failure The eGFR was calculated using the Chronic Kidney Disease Epidemiology Collaboration (CKD-EPI) equation. Interpretation is based on recommendations of the National Kidney Foundation-Kidney Disease Outcomes Quality Initiative (NKF-KDOQI) published in 2014. Specimen Blood Performing Organization Address City/[facility]/Zipcode Phone Number [address] [address] PATHOLOGY AND GENOMIC MEDICINE * POC creatinine (04/29/2018 6:25 PM CDT) POC creatinine 0.9 0.7 - 1.2 mg/dl [facility] DEPARTMENT OF Comment: PATHOLOGY AND Meter ID: [id number] GENOMIC MEDICINE Cargo Supervisor: Jacqueline Mejias Specimen Blood Performing Organization Address City/State/Zipcode Phone Number [facility] DEPARTMENT OF [address] [place] [address] PATHOLOGY AND GENOMIC MEDICINE * CT Angiogram Chest W Contrast Abdomen W Contrast Pelvis W Contrast (03/26/2018 6:30 PM CDT) Narrative Performed At EXAMINATION:CT ANGIOGRAM CHEST ABDOMEN PELVIS W AND OR WITHOUT CONTRAST [facility] CLINICAL HISTORY:Abdominal painSOBHx of PE TECHNIQUE:Multiple CT angiographic images of the chest, abdomen, and pelvis were obtained during intravenous administration of contrast. Multiple computerized reformatted images as well as 3-D volume rendered images were also obtained. CT scans are performed using radiation dose reduction techniques. Technical factors are evaluated and adjusted to ensure appropriate moderation of exposure. Automated dose management technology is applied to adjust radiation exposure while achieving a diagnostic quality image. COMPARISON:March 14, 2018 IMPRESSION: Vascular: 1.The thoracic aorta is normal in caliber. The heart is normal in size. 2.There is satisfactory opacification of the pulmonary arteries as well. No pulmonary emboli are seen. 3.Abdominal aorta is normal in caliber without dissection. 4.Mild calcified plaque at the ostium of the celiac artery, without stenosis. Mild calcified plaque in the proximal SMA, without stenosis. The SMA and visualized branches are widely patent. 5.Mild calcification at the ostium of the left renal artery, without significant stenosis. There are 2 right renal arteries, also without evidence of renal artery stenosis. The KAISER is widely patent. 6.Bilateral common iliac arteries demonstrate mild calcified plaque without stenosis. The external iliac arteries are free of disease. Non-Vascular: 1. Large calcified granuloma at the apex of the left upper lobe with bilateral apical scarring and broncholith in the left upper lobe bronchus with distal mucoid impaction. Calcified left hilar nodes also related to prior granulomatous infection. 2.Scattered hepatic cysts measuring up to 2 cm. Old splenic granulomas also noted. Mild pancreatic atrophy. No adrenal mass. Punctate nonobstructive renal calculi on the right. No hydronephrosis or suspicious renal mass. 3.There is sigmoid diverticulosis without acute diverticulitis. [id number] Procedure Note Interface, Radiology Results Incoming - 03/26/2018 7:02 PM CDT EXAMINATION: CT ANGIOGRAM CHEST ABDOMEN PELVIS W AND OR WITHOUT CONTRAST CLINICAL HISTORY: Abdominal pain SOB Hx of PE TECHNIQUE: Multiple CT angiographic images of the chest, abdomen, and pelvis were obtained during intravenous administration of contrast. Multiple computerized reformatted images as well as 3-D volume rendered images were also obtained. CT scans are performed using radiation dose reduction techniques. Technical factors are evaluated and adjusted to ensure appropriate moderation of exposure. Automated dose management technology is applied to adjust radiation exposure while achieving a diagnostic quality image. COMPARISON: March 14, 2018 IMPRESSION: Vascular: 1. The thoracic aorta is normal in caliber. The heart is normal in size. 2. There is satisfactory opacification of the pulmonary arteries as well. No pulmonary emboli are seen. 3. Abdominal aorta is normal in caliber without dissection. 4. Mild calcified plaque at the ostium of the celiac artery, without stenosis. Mild calcified plaque in the proximal SMA, without stenosis. The SMA and visualized branches are widely patent. 5. Mild calcification at the ostium of the left renal artery, without significant stenosis. There are 2 right renal arteries, also without evidence of renal artery stenosis. The KAISER is widely patent. 6. Bilateral common iliac arteries demonstrate mild calcified plaque without stenosis. The external iliac arteries are free of disease. Non-Vascular: 1. Large calcified granuloma at the apex of the left upper lobe with bilateral apical scarring and broncholith in the left upper lobe bronchus with distal mucoid impaction. Calcified left hilar nodes also related to prior granulomatous infection. 2. Scattered hepatic cysts measuring up to 2 cm. Old splenic granulomas also noted. Mild pancreatic atrophy. No adrenal mass. Punctate nonobstructive renal calculi on the right. No hydronephrosis or suspicious renal mass. 3. There is sigmoid diverticulosis without acute diverticulitis. [id number] Performing Organization Address City/State/[facility]code Phone Number SARAH [address] [place] [address] * ALT (SGPT) (03/26/2018 6:25 PM CDT) ALT 15 5 - 50 U/L [facility] DEPARTMENT OF PATHOLOGY AND GENOMIC MEDICINE Specimen Plasma specimen Performing Organization Address City/State/[facility]alscode Phone Number [facility] DEPARTMENT OF [address] [place] [address] PATHOLOGY AND GENOMIC MEDICINE * AST (SGOT) (03/26/2018 6:25 PM CDT) AST 13 10 - 50 U/L [facility] DEPARTMENT OF PATHOLOGY AND GENOMIC MEDICINE Specimen Plasma specimen Performing Organization Address [facility]code Phone Number [facility] [place] [address] PATHOLOGY AND GENOMIC MEDICINE * Potassium level (03/26/2018 6:25 PM CDT) Potassium 4.1 3.5 - 5.0 mEq/L [facility] DEPARTMENT PATHOLOGY AND GENOMIC MEDICINE Specimen Plasma specimen Performing Organization Address [facility]alscomd Phone Number [facility] [place] [address] PATHOLOGY AND GENOMIC MEDICINE * Urinalysis screen and microscopy, with reflex to culture (03/26/2018 5:04 PM CDT) Only the most recent of 2 results within the time period is included. Specimen site Random void [facility] DEPARTMENT OF PATHOLOGY AND GENOMIC MEDICINE Color, UA Straw [facility] DEPARTMENT OF PATHOLOGY AND GENOMIC MEDICINE Appearance, UA Clear [facility] DEPARTMENT OF PATHOLOGY AND GENOMIC MEDICINE Specific gravity, UA 1.005 1.001 - 1.035 [facility] DEPARTMENT OF PATHOLOGY AND GENOMIC MEDICINE pH, UA 7.0 5.0 - 8.5 [facility] DEPARTMENT OF PATHOLOGY AND GENOMIC MEDICINE Protein, UA Negative Negative [facility] DEPARTMENT OF PATHOLOGY AND GENOMIC MEDICINE Glucose, UA Negative Negative [facility] DEPARTMENT OF PATHOLOGY AND GENOMIC MEDICINE Ketones, UA Negative Negative [facility] DEPARTMENT OF PATHOLOGY AND GENOMIC MEDICINE Bilirubin, UA Negative Negative [facility] DEPARTMENT OF PATHOLOGY AND GENOMIC MEDICINE Blood, UA Small (A) Negative [facility] DEPARTMENT OF PATHOLOGY AND GENOMIC MEDICINE Nitrite, UA Negative Negative [facility] DEPARTMENT OF PATHOLOGY AND GENOMIC MEDICINE Urobilinogen, UA <2.0 <2.0 [facility] DEPARTMENT OF PATHOLOGY AND GENOMIC MEDICINE Leukocyte esterase, UA Negative Negative [facility] DEPARTMENT OF PATHOLOGY AND GENOMIC MEDICINE WBC, UA None seen 0 - 1 /HPF [facility] DEPARTMENT OF PATHOLOGY AND GENOMIC MEDICINE RBC, UA <1 0 - 5 /HPF [facility] DEPARTMENT OF PATHOLOGY AND GENOMIC MEDICINE Bacteria, UA Few None seen [facility] DEPARTMENT OF PATHOLOGY AND GENOMIC MEDICINE Yeast, UA None seen [facility] DEPARTMENT OF PATHOLOGY AND GENOMIC MEDICINE Yeast with pseudohyphae, None seen [facility] DEPARTMENT OF UA PATHOLOGY AND GENOMIC MEDICINE Specimen Urine Performing Organization Address City/[facility]code Phone Number [facility] DEPARTMENT [address] [address] PATHOLOGY AND GENOMIC MEDICINE * Urine culture (03/26/2018 5:00 PM CDT) Only the most recent of 2 results within the time period is included. Urine culture SEE COMMENTComment: [facility] DEPARTMENT OF Bacteriuria screen negative. PATHOLOGY AND GENOMIC MEDICINE Performing Organization Address City/[facility]code Phone Number [address] [address] PATHOLOGY AND GENOMIC MEDICINE * Estimated GFR (03/26/2018 2:09 PM CDT) Only the most recent of 3 results within the time period is included. GFR Non Af Amer 84 mL/min/1.73 m2 [facility] DEPARTMENT OF PATHOLOGY AND GENOMIC MEDICINE GFR Af Amer >90 mL/min/1.73 m2 [facility] DEPARTMENT OF Comment: PATHOLOGY AND Chronic kidney disease: <60 GENOMIC MEDICINE mL/min/1.73m2 Kidney failure: <15 mL/min/1.73m2 The estimated GFR is calculated from the IDMS-traceable Modification of Diet in Renal Disease Equation. The accuracy of the calculation is poor when the creatinine is normal. Calculated values >90 mL/min/1.73m2 are not reported. This equation has not been validated in children (<18 years), women, the elderly (>70 years), or ethnic groups other than Caucasians and Americans. Specimen Plasma specimen Performing Organization Address [facility] [place] Phone Number [address] [address] PATHOLOGY AND GENOMIC MEDICINE * Manual differential (03/26/2018 2:09 PM CDT) Manual differential PERFORMED [facility] DEPARTMENT OF PATHOLOGY AND GENOMIC MEDICINE Neutrophils 74.0 (H) 39.0 - 69.0 % [facility] DEPARTMENT OF PATHOLOGY AND GENOMIC MEDICINE Lymphocytes 21.0 (L) 25.0 - 45.0 % [facility] DEPARTMENT OF PATHOLOGY AND GENOMIC MEDICINE Monocytes 5.0 0.0 - 10.0 % [facility] DEPARTMENT OF PATHOLOGY AND GENOMIC MEDICINE Eosinophils 0.0 0.0 - 5.0 % [facility] DEPARTMENT OF PATHOLOGY AND GENOMIC MEDICINE Basophils 0.0 0.0 - 1.0 % [facility] DEPARTMENT OF PATHOLOGY AND GENOMIC MEDICINE Metamyelocytes 0 % [facility] DEPARTMENT OF PATHOLOGY AND GENOMIC MEDICINE Promyelocytes 0 % [facility] DEPARTMENT OF PATHOLOGY AND GENOMIC MEDICINE Reactive lymphocytes Few [facility] DEPARTMENT OF PATHOLOGY AND GENOMIC MEDICINE Platelet slide review Bruce adequate [facility] DEPARTMENT OF PATHOLOGY AND GENOMIC MEDICINE Ovalocytes Moderate [facility] DEPARTMENT OF PATHOLOGY AND GENOMIC MEDICINE Performing Organization Address City/[facility] [place]/Zipcode Phone Number [address] [address] PATHOLOGY AND GENOMIC MEDICINE * CBC with platelet and differential (03/26/2018 2:09 PM CDT) Only the most recent of 3 results within the time period is included. WBC 7.13 4.50 - 11.00 k/uL [facility] DEPARTMENT OF PATHOLOGY AND GENOMIC MEDICINE RBC 4.46 4.40 - 6.00 m/uL [facility] DEPARTMENT OF PATHOLOGY AND GENOMIC MEDICINE HGB 13.1 (L) 14.0 - 18.0 g/dL [facility] DEPARTMENT OF PATHOLOGY AND GENOMIC MEDICINE HCT 40.1 (L) 41.0 - 51.0 % [facility] DEPARTMENT OF PATHOLOGY AND GENOMIC MEDICINE MCV 89.9 82.0 - 100.0 fL [facility] DEPARTMENT OF PATHOLOGY AND GENOMIC MEDICINE MCH 29.4 27.0 - 34.0 pg [facility] DEPARTMENT OF PATHOLOGY AND GENOMIC MEDICINE MCHC 32.7 31.0 - 37.0 g/dL [facility] DEPARTMENT OF PATHOLOGY AND GENOMIC MEDICINE RDW - SD 44.1 37.0 - 55.0 fL [facility] DEPARTMENT OF PATHOLOGY AND GENOMIC MEDICINE MPV 10.4 8.8 - 13.2 fL [facility] DEPARTMENT OF PATHOLOGY AND GENOMIC MEDICINE Platelet count 254 150 - 400 k/uL [facility] DEPARTMENT OF PATHOLOGY AND GENOMIC MEDICINE Nucleated RBC 0.00 /100 WBC [facility] DEPARTMENT OF PATHOLOGY AND GENOMIC MEDICINE Neutrophils 74.0 (H) 39.0 - 69.0 % [facility] DEPARTMENT OF PATHOLOGY AND GENOMIC MEDICINE Lymphocytes 21.0 (L) 25.0 - 45.0 % [facility] DEPARTMENT OF PATHOLOGY AND GENOMIC MEDICINE Monocytes 5.0 0.0 - 10.0 % [facility] DEPARTMENT OF PATHOLOGY AND GENOMIC MEDICINE Eosinophils 0.0 0.0 - 5.0 % [facility] DEPARTMENT OF PATHOLOGY AND GENOMIC MEDICINE Basophils 0.0 0.0 - 1.0 % [facility] DEPARTMENT OF PATHOLOGY AND GENOMIC MEDICINE Specimen Blood Performing Organization Address City/[facility]/Zipcode Phone Number [address] [address] PATHOLOGY AND GENOMIC MEDICINE * Lipase level (03/26/2018 2:09 PM CDT) Only the most recent of 2 results within the time period is included. Lipase 30 13 - 60 U/L [facility] DEPARTMENT OF PATHOLOGY AND GENOMIC MEDICINE Specimen Plasma specimen Performing Organization Address City/State/Zipcode Phone Number [facility] DEPARTMENT OF [address] [place] [address] PATHOLOGY AND GENOMIC MEDICINE * Comprehensive metabolic panel (03/26/2018 2:09 PM CDT) Only the most recent of 3 results within the time period is included. Sodium 141 135 - 148 mEq/L [facility] DEPARTMENT OF PATHOLOGY AND GENOMIC MEDICINE Potassium SEE COMMENT 3.5 - 5.0 mEq/L [facility] DEPARTMENT OF Comment: PATHOLOGY AND Footnote--------- GENOMIC MEDICINE Unable to perform testing, specimen is HEMOLYZED.Recollect requested for K,AST(tests). Chloride 101 98 - 112 mEq/L [facility] DEPARTMENT OF PATHOLOGY AND GENOMIC MEDICINE CO2 28 24 - 31 mEq/L [facility] DEPARTMENT OF PATHOLOGY AND GENOMIC MEDICINE Anion gap 12@ANIO 7 - 15 mEq/L [facility] DEPARTMENT OF PATHOLOGY AND GENOMIC MEDICINE BUN 6 (L) 8 - 23 mg/dL [facility] DEPARTMENT OF PATHOLOGY AND GENOMIC MEDICINE Creatinine 0.9 0.7 - 1.2 mg/dL [facility] DEPARTMENT OF PATHOLOGY AND GENOMIC MEDICINE Glucose 119 (H) 65 - 99 mg/dL [facility] DEPARTMENT OF PATHOLOGY AND GENOMIC MEDICINE Calcium 9.8 8.8 - 10.2 mg/dL [facility] DEPARTMENT OF PATHOLOGY AND GENOMIC MEDICINE Protein 7.4 6.3 - 8.3 g/dL [facility] DEPARTMENT OF Comment: PATHOLOGY AND [place] GENOMIC MEDICINE 4.6-7.0 g/dL 1 week 4.4-7.6 g/dL 7 months-1year 5.1-7.3 g/dL 1-2 years5.6-7 .5 g/dL >3 years6.0-8 .0 g/dL 18-150 6.3-8.3 g/dL Albumin 4.1 3.5 - 5.0 g/dL [facility] DEPARTMENT OF PATHOLOGY AND GENOMIC MEDICINE A/G ratio 1.2 0.7 - 3.8 [facility] DEPARTMENT OF PATHOLOGY AND GENOMIC MEDICINE Alkaline phosphatase 72 40 - 129 U/L [facility] DEPARTMENT OF PATHOLOGY AND GENOMIC MEDICINE AST SEE COMMENTComment: 10 - 50 U/L [facility] DEPARTMENT OF Footnote--------- PATHOLOGY AND GENOMIC MEDICINE ALT 18 5 - 50 U/L [facility] DEPARTMENT OF PATHOLOGY AND GENOMIC MEDICINE Total bilirubin 0.3 0.0 - 1.2 mg/dL [facility] DEPARTMENT OF PATHOLOGY AND GENOMIC MEDICINE Specimen Plasma specimen Performing Organization Address City/State/Zipcode Phone Number [facility] DEPARTMENT OF [address] [place] [address] PATHOLOGY AND GENOMIC MEDICINE * CT Enterography (03/17/2018 11:23 AM CDT) Narrative Performed At EXAMINATION:CT ENTEROGRAPHY [facility] CLINICAL HISTORY:Abd painunspecified TECHNIQUE:Multiple axial images of the abdomen and pelvis were obtained during intravenous administration of iodinated contrast. Low density oral contrast was administered (CT enterography protocol). Sagittal and coronal computerized reformatted images were also obtained. Scan was performed using radiation dose reduction techniques. COMPARISON:CTA abdomen March 14, 2018, CT abdomen and pelvis March 08, 2018 FINDINGS: A subsegmental pulmonary arterial filling defect is again seen in the right lower lobe (series 2 image 8). Small bowel demonstrates normal caliber and fold pattern. No significant thickening or hyperenhancement. No stranding. Colon is also grossly unremarkable other than for some sigmoid diverticulosis without signs of acute diverticulitis. No free fluid, fluid collection, or free air. Celiac axis and mesenteric arteries are adequately patent. A few pericentimeters cysts are seen in the liver. Some of the less than 5 mm hypodense foci are presumed cysts but too small to characterize. There are also a few calcified granulomas in the spleen and liver. Status post cholecystectomy. No significant biliary dilatation. No pancreatic mass. Couple of tiny calyceal stones are seen in the right kidney. No hydronephrosis. Bladder is nondistended. Diffusely calcified aorta without aneurysm. Status post left hip arthroplasty, lumbar fusion, and laminectomy. Moderately severe right hip osteoarthritis. IMPRESSION: 1. No evidence of significant small bowel pathology or acute process in the abdomen and pelvis. 2.Sigmoid colon diverticulosis. 3.Patent mesenteric arteries. 4.Subsegmental PE in the right lower lobe is stable. [facility]-[id number] Procedure Note Hm Interface, Radiology Results Incoming - 03/17/2018 11:41 AM CDT EXAMINATION: CT ENTEROGRAPHY CLINICAL HISTORY: Abd pain unspecified TECHNIQUE: Multiple axial images of the abdomen and pelvis were obtained during intravenous administration of iodinated contrast. Low density oral contrast was administered (CT enterography protocol). Sagittal and coronal computerized reformatted images were also obtained. Scan was performed using radiation dose reduction techniques. COMPARISON: CTA abdomen March 14, 2018, CT abdomen and pelvis March 08, 2018 FINDINGS: A subsegmental pulmonary arterial filling defect is again seen in the right lower lobe (series 2 image 8). Small bowel demonstrates normal caliber and fold pattern. No significant thickening or hyperenhancement. No stranding. Colon is also grossly unremarkable other than for some sigmoid diverticulosis without signs of acute diverticulitis. No free fluid, fluid collection, or free air. Celiac axis and mesenteric arteries are adequately patent. A few pericentimeters cysts are seen in the liver. Some of the less than 5 mm hypodense foci are presumed cysts but too small to characterize. There are also a few calcified granulomas in the spleen and liver. Status post cholecystectomy. No significant biliary dilatation. No pancreatic mass. Couple of tiny calyceal stones are seen in the right kidney. No hydronephrosis. Bladder is nondistended. Diffusely calcified aorta without aneurysm. Status post left hip arthroplasty, lumbar fusion, and laminectomy. Moderately severe right hip osteoarthritis. IMPRESSION: 1. No evidence of significant small bowel pathology or acute process in the abdomen and pelvis. 2. Sigmoid colon diverticulosis. 3. Patent mesenteric arteries. 4. Subsegmental PE in the right lower lobe is stable. [facility]-[id number] Performing Organization Address City/State/Zipcode Phone Number [facility] [address] [place] [address] * [place] Cardiac Shunt Evaluation (03/15/2018 5:11 PM CDT) Narrative Performed At EXAMINATION: [place] CARDIAC SHUNT EVALUATION [facility] CLINICAL HISTORY: Shunt study -- RLL subsegmental PEsymptoms of abdominal angina TECHNIQUE: The patient was injected with 5 mCi of axukueblbs-95m-DIA intravenously, followed by imaging of the head in the anterior and posterior projections. FINDINGS: No uptake in the brain. Also, there is no significant renal uptake on yesterday's CT scan. IMPRESSION: No evidence of right to left shunt. Procedure Note Interface, Radiology Results Incoming - 03/15/2018 5:18 PM CDT EXAMINATION: [place] CARDIAC SHUNT EVALUATION CLINICAL HISTORY: Shunt study -- RLL subsegmental PE symptoms of abdominal angina TECHNIQUE: The patient was injected with 5 mCi of aqsnopostq-49o-HNK intravenously, followed by imaging of the head in the anterior and posterior projections. FINDINGS: No uptake in the brain. Also, there is no significant renal uptake on yesterday's CT scan. IMPRESSION: No evidence of right to left shunt. Performing Organization Address City/State/Zipcode Phone Number [facility] [address] [facility] [place] [address] * Echocardiogram complete w contrast and 3D if needed (03/15/2018 8:12 AM CDT) Narrative Performed At [facility] Echocardiography Report [id number] [facility] [address], [place] [address] Pat.Name:JAYE FOREMAN.ID:[id number] .Date: 03/15/2018 Refer.MD:THALIA MARQUEZ MD Exam Time: 7:39:00 AMStudy Type:Routine Echo Height:70inWeight:166lb BSA: 1.93 m2 DOBAge:1950,67Y Sex: MALEBP:140/65 Sonogrphr: Federica Kraft RDCS, RVSPat. Stat.:Inpatient Room:[facility] Study Status:Final Echo Event ID:[id number] Order ID:[id number] Reason for Study:PULMONARY EMBOLISM Procedures:2D Echo, Colorflow Doppler, Intravenous Saline Contrast SUMMARY: LV EF is normal. Estimated EF is 65-69% RV size is normal. RV systolic function is normal. Aortic root diameter is mildly enlarged 4.2 cm. Mild aortic regurgitation. No intracardiac shunt detected. FINDINGS: LV: LV size is normal. LV EF is normal. Overall wall motion is normal.Estimated EF is 65-69% Normal global longituindal strainat -20% RV: RV size is normal. RV systolic function is normal. LA: LA size is normal. RA: RA volume is normal. A Eustachian valve and/or Chiari networkis seen. This is a normal variant. AO: Aortic root diameter is mildly enlarged. TYSON: No pericardial effusion. Cntrst: No intracardiac shunt detected. AV: No structural AV abnormalities noted. Mild aortic regurgitation. MV: No structural MV abnormalities noted. A trace of mitral regurgitation. PV: No structural PV abnormalities noted. Mild pulmonic regurgitation. TV: No structural TV abnormalities noted. A trace of tricuspid regurgitation [place]: Normal diastolic function. Other:Insufficient TR jet to estimate PA systolic pressure. MEASUREMENTS: 2D Parasternal [place] LVOT 2.2 cmLVPWd0.7 cm LVIDd4.1 cmIndex2.1 cm/m LA Ds3 cm LVIDs1.5 cmAo An2.4 cm LV%fs 63.8 % LV Mass 86.9 g(122-174) IVSd 0.8 cmRWT0.3 LA Sng Plane LA Area 17.7 cm2(8.8-23.4) LA Vol48.2 ml Index25 ml/m LA LngAx 4.8 cm Aorta Ao Rtd 4.2 cm (1.7-3.4) DOPPLER LVOT Stroke Vol LVOT 2.2 cmLVOT SV 83.8 ml LVOT TVI22 cmLVOT CO5.5 l/min LVOT Tm378 tpedHT37 bpm Signed 03/15/2018 10:04 AM Pio Grider MD Procedure Note Interface, Radiology Results In - 03/15/2018 10:05 AM CDT Echocardiography Report [address] [address], [place] [address] [facility].Name: JAYE FOREMAN Pat.ID: [id number] .Date: 03/15/2018 Refer.MD: THALIA MARQUEZ MD Exam Time: 7:39:00 AM Study Type:Routine Echo Height: 70in Weight: 166lb BSA: 1.93 m2 Age: 8 1950,67Y Sex: MALE BP: 140/65 Sonogrphr: Federica Kraft, NATALYACS, RVSPat. Stat.:Inpatient Room: [facility] Study Status:Final Echo Event ID:[id number] Order ID: [id number] Reason for Study:PULMONARY EMBOLISM Procedures:2D Echo, Colorflow Doppler, Intravenous Saline Contrast SUMMARY: LV EF is normal. Estimated EF is 65-69% RV size is normal. RV systolic function is normal. Aortic root diameter is mildly enlarged 4.2 cm. Mild aortic regurgitation. No intracardiac shunt detected. FINDINGS: LV: LV size is normal. LV EF is normal. Overall wall motion is normal. Estimated EF is 65-69% Normal global longituindal strain at -20% RV: RV size is normal. RV systolic function is normal. LA: LA size is normal. RA: RA volume is normal. A Eustachian valve and/or Chiari network is seen. This is a normal variant. AO: Aortic root diameter is mildly enlarged. TYSON: No pericardial effusion. Cntrst: No intracardiac shunt detected. AV: No structural AV abnormalities noted. Mild aortic regurgitation. MV: No structural MV abnormalities noted. A trace of mitral regurgitation. PV: No structural PV abnormalities noted. Mild pulmonic regurgitation. TV: No structural TV abnormalities noted. A trace of tricuspid regurgitation [place]: Normal diastolic function. Other: Insufficient TR jet to estimate PA systolic pressure. MEASUREMENTS: 2D Parasternal [place] LVOT 2.2 cm LVPWd 0.7 cm LVIDd 4.1 cm Index 2.1 cm/m LA Ds 3 cm LVIDs 1.5 cm Ao An 2.4 cm LV%fs 63.8 % LV Mass 86.9 g (122-174) IVSd 0.8 cm RWT 0.3 LA Sng Plane LA Area 17.7 cm2 (8.8-23.4) LA Vol 48.2 ml Index 25 ml/m LA LngAx 4.8 cm Aorta Ao Rtd 4.2 cm (1.7-3.4) DOPPLER LVOT Stroke Vol LVOT 2.2 cm LVOT SV 83.8 ml LVOT TVI 22 cm LVOT CO 5.5 l/min LVOT Tm 378 msec HR 66 bpm Signed 03/15/2018 10:04 AM Pio Grider MD Performing Organization Address City/State/Zipcode Phone Number [facility] [address] [place] [address] * Pv duplex venous lower extremity (03/14/2018 9:29 PM CDT) Narrative Performed At [facility] Vascular Ultrasound Laboratory Lower Extremity Venous Report [address] [place] [address] Pat.Name:JAYE FOREMAN Lesley.ID:[id number] .Date: 03/14/2018 Refer.MD:PHYSICIAN, EMERGENCY, MD Exam Time: 7:09:00 PMStudy Type:LE Venous DOBAge:1950,67YSex: MALE Sonogrphr: [place] Vi, RVTPat. Stat.:[facility] , [facility] - 4: [address] Echo Event ID:[id number] Order ID:[id number] Reason for Study:Bilateral leg swelling. Patient had pulmonary embolism on 03/14/2018. Procedures:Colorflow, Grayscale/2D, Pulsed wave Doppler Race:C SUMMARY: DUPLEX SCAN OBSERVATIONS Deep VeinsSuperficial Veins RightLeft RightLeft EIV GSV (prox) NormalNormal CFV Normal Normal (above knee) Femoral Normal Normal GSV (dist) Normal Normal Profunda Normal Normal (below knee) Popliteal Normal Normal PT (prox) Not Visualized NormalSSV Normal Not Visualized PT (dist) Not Visualized Normal Peroneal Normal Normal RIGHT:There is normal compressibility with no evidence of echogenic material noted within the lumen of the visualized veins.Colorflow and Doppler signals are normal. LEFT: There is normal compressibility with no evidence of echogenic material noted within the lumen of the visualized veins.Colorflow and Doppler signals are normal. PRELIMINARY FINDINGS 1. No evidence of venous thrombosis seen in the visualized veins, bilaterally. PHYSICIAN INTERPRETATION Venous examination of the both lower extremities demonstrated no evidence of venous thrombosis in the visualized veins.Normal compressibility and augmentation of all veins visualized. Signed 03/15/2018 08:22 AM Leland Santiago MD, RPVI Procedure Note Interface, Radiology Results In - 03/15/2018 8:22 AM CDT Vascular Ultrasound Laboratory Lower Extremity Venous Report [address] [place] [address] Pat.Name: JAYE FOREMAN Pat.ID: [id number] .Date: 03/14/2018 Refer.MD: PHYSICIAN, EMERGENCY, Exam Time: 7:09:00 PM Study Type:LE Venous Age: 8 1950,67Y Sex: MALE Sonogrphr: Carter Monroy RVT Pat. Stat.:Outpatient Room: [address] Vol: , CPT - 4: [address] Echo Event ID:[id number] Order ID: [id number] Reason for Study:Bilateral leg swelling. Patient had pulmonary embolism on 03/14/2018. Procedures:Colorflow, Grayscale/2D, Pulsed wave Doppler Race: C SUMMARY: DUPLEX SCAN OBSERVATIONS Deep Veins Superficial Veins Right Left Right Left EIV GSV (prox) Normal Normal CFV Normal Normal (above knee) Femoral Normal Normal GSV (dist) Normal Normal Profunda Normal Normal (below knee) Popliteal Normal Normal PT (prox) Not Visualized Normal SSV Normal Not Visualized PT (dist) Not Visualized Normal Peroneal Normal Normal RIGHT: There is normal compressibility with no evidence of echogenic material noted within the lumen of the visualized veins.Colorflow and Doppler signals are normal. LEFT: There is normal compressibility with no evidence of echogenic material noted within the lumen of the visualized veins.Colorflow and Doppler signals are normal. PRELIMINARY FINDINGS 1. No evidence of venous thrombosis seen in the visualized veins, bilaterally. PHYSICIAN INTERPRETATION Venous examination of the both lower extremities demonstrated no evidence of venous thrombosis in the visualized veins. Normal compressibility and augmentation of all veins visualized. Signed 03/15/2018 08:22 AM Leland Santiago MD, RPVI Performing Organization Address City/[facility]/Zipcode Phone Number [facility] [address] [place] [address] * Troponin (03/14/2018 3:57 PM CDT) Only the most recent of 2 results within the time period is included. Troponin <0.30 0.00 - 0.30 ng/mL [facility] DEPARTMENT OF Comment: PATHOLOGY AND 0.30 - 1.49 GENOMIC MEDICINE ng/mlMay indicate increased risk of acute coronary syndrome. >=1.5 ng/ml Consistent with acute myocardial infarction. The diagnostic value of a single normal or non-diagnostic result is questionable.Serial samples at 2-6 hour intervals are required to rule out acute myocardial injury. Specimen Plasma specimen Performing Organization Address City/[facility]/Zipcode Phone Number [facility] DEPARTMENT OF [address] [place] [address] PATHOLOGY AND GENOMIC MEDICINE * NM Lung Ventilation Perfusion (03/14/2018 3:35 PM CDT) Narrative Performed At CLINICAL HISTORY: PE suspectedhigh pretest prob [facility] TECHNIQUE: The patient breathed 15-20 mCi of xenon-133 gas through a closed ventilation system while dynamic imaging of the lungs was performed in the posterior and anterior projections. The patient was then injected with 5 mCi of hezfzgtoxd-64w-MNO intravenously, followed by imaging of the lungs in anterior, posterior, and oblique projections. FINDINGS: Mild air trapping diffusely and bilaterally on ventilation. Mildly reduced perfusion nonsegmentally in the upper lobes bilaterally. A moderate-sized perfusion defect is present in the posteromedial aspect of the right lower lobe, only partially matched to reduced ventilation and air trapping. IMPRESSION: Intermediate Probability for pulmonary embolism. [facility]-[id number] Procedure Note [facility], Radiology Results Incoming - 03/14/2018 4:28 PM CDT CLINICAL HISTORY: PE suspected high pretest prob TECHNIQUE: The patient breathed 15-20 mCi of xenon-133 gas through a closed ventilation system while dynamic imaging of the lungs was performed in the posterior and anterior projections. The patient was then injected with 5 mCi of lalwcfdbhv-17b-EZK intravenously, followed by imaging of the lungs in anterior, posterior, and oblique projections. FINDINGS: Mild air trapping diffusely and bilaterally on ventilation. Mildly reduced perfusion nonsegmentally in the upper lobes bilaterally. A moderate-sized perfusion defect is present in the posteromedial aspect of the right lower lobe, only partially matched to reduced ventilation and air trapping. IMPRESSION: Intermediate Probability for pulmonary embolism. [facility]-[id number] Performing Organization Address City/State/Zipcode Phone Number [facility] [address] [place] [address] * CRITICAL CARE (03/14/2018 2:27 PM CDT) Narrative Performed At [facility] Anni Ba MD 03/30/20187:59 AM Critical Care Performed by: [facility] Authorized by: JOLANTA GUTIERREZ Critical care provider statement: Critical care time (minutes):35 Critical care was necessary to treat or prevent imminent or life-threatening deterioration of the following conditions:Shock and circulatory failure Critical care was time spent personally by me on the following activities:Ordering and performing treatments and interventions, ordering and review of laboratory studies, ordering and review of radiographic studies, pulse oximetry, review of old charts, re-evaluation of patient's condition, blood draw for specimens, development of treatment plan with patient or surrogate, discussions with consultants, discussions with primary provider, evaluation of patient's response to treatment and examination of patient * Partial thromboplastin time, activated (03/14/2018 2:05 PM CDT) PTT 26.4 23.0 - 36.0 sec [facility] DEPARTMENT OF Comment: PATHOLOGY AND PTT therapeutic range for [facility] unfractionated heparin is 61.0-112.0 seconds which corresponds to Anti-Xa 0.3-0.7 U/ml. Specimen Blood Performing Organization Address [facility]/[employer] [facility] Phone Number [facility] [place] [address] PATHOLOGY AND [employer] MEDICINE * Prothrombin time with INR (03/14/2018 2:05 PM CDT) Prothrombin time 14.0 12.0 - 15.0 sec [facility] DEPARTMENT OF PATHOLOGY AND [employer] MEDICINE INR 1.1 [facility] DEPARTMENT OF Comment: PATHOLOGY AND The International Normalized GENOMIC MEDICINE Ratio (INR) is a therapeutic monitoring tool for patients who are stable on oral anticoagulant therapy. An INR of 2.0-3.0 is suggested for deep vein thrombosis/pulmonary embolism. Specimen Blood Performing Organization Address [facility] Phone Number [facility] [place] [address] PATHOLOGY AND [employer] MEDICINE * B natriuretic peptide (03/14/2018 2:05 PM CDT) BNP 45 0 - 100 pg/mL [facility] DEPARTMENT OF PATHOLOGY AND GENOMIC MEDICINE Specimen Blood Performing Organization Address [facility] Phone Number [facility] [place] [address] PATHOLOGY AND [employer] MEDICINE * ECG 12 lead (03/14/2018 1:05 PM CDT) Ventricular rate 72 [facility] Atrial rate 72 [facility] SC interval 156 [facility] MUSE QRSD interval 100 [facility] QT interval 402 [facility] QTC interval 440 [facility] MUSE P axis 1 48 [facility] QRS axis 1 36 [facility] T wave axis 54 [facility] MUSE EKG impression Normal sinus rhythm-Normal [facility] MUSE ECG-In automated comparison with ECG of 01-DEC-2010 13:37,-No significant change was found- Performing Organization Address [facility] Phone Number [facility] MUSE [address] [place] [phone] * CTA Abdomen W Wo Contrast (03/14/2018 9:25 AM CDT) Addenda Addendum by Triny Rice MD on 03/14/2018 11:34 AM ADDENDUM #1 ADDENDUM: The findings were discussed with Dr. Interiano at 11:28 AM on 03/14/2018. Narrative Performed At EXAM: RADIANT CT ANGIOGRAM ABDOMEN W WO CONTRAST INDICATION: R10.33 Periumbilical pain, I70.0 Atherosclerosis of aorta, Mesenteric ischemia chronic, abd painischemiaweight loss COMPARISON: CT abdomen pelvis study contrast dated 05/18/2018. TECHNIQUE: After administration of iodinated contrast intravenously, axial CT images of the abdomen and pelvis were obtained. Coronal and sagittal reformations were obtained. 3-D volumetric reconstruction of the arterial system was obtained. Iterative reconstruction and/or automated exposure control techniques were employed to reduce radiation dose. FINDINGS: Limited chest: Visualized portions of the esophagus, heart, pericardium are normal. No adenopathy visualized portions of the chest. Minimal linear opacity dependent right lower lung, discoid atelectasis versus scar. Otherwise, visualized lung bases are clear. Apparent filling defect within a right lower lobe posterior and medial subsegmental pulmonary artery (series 2, slice 1), suspicious for pulmonary arterial embolism. Recommend further evaluation with CT PE protocol. Abdomen: 1.4 similar diameter simple cyst upper middle lobe of the liver, segment IV a (series 2, slice 17).2.0 cm diameter simple cyst anterior inferior right lobe of liver, segment 5 (series 2, slice 43). Subcentimeter hypodensities within the upper left lobe of liver, segment 2, too small to definitively characterize but statistically likely to be simple cysts or hemangiomas. 2 mm diameter calcified granuloma anterior inferior right lobe liver, segment 5 (series 2, slice 43). Subtle hypodensity of the liver adjacent to falciform lumen, compatible with focal fatty infiltration. Status post cholecystectomy. Common bile duct measures up to 1.0 cm in maximal coronal diameter, which is the upper limits of normal status post cholecystectomy. Mild diffuse atrophy of the pancreas. Multiple calcified granulomas scattered throughout the spleen. Otherwise, spleen is normal. Bilateral adrenals are normal. Mild nonspecific perinephric fat stranding bilaterally. 4 mm diameter nonobstructing calculus right kidney upper pole collecting system (series 2, slice 44). Punctate nonobstructing calculus right kidney midpole collecting system) series 2, slice 50). Otherwise, kidneys are normal. Stomach is mostly decompressed is full evaluation of its wall. 1.9 x 1.2 cm diameter diverticulum anteromedial aspect second portion duodenum (series 2, slice 57). Otherwise, duodenum is normal. Remainder visualized small bowel is normal. Appendix not definitively visualized and may be surgically absent. Calcified diverticulum distal descending colon. No evidence of acute diverticulitis. Otherwise visualized portions of the colon are normal. Limited pelvis: Unremarkable. Vascular: Descending thoracic aorta: Mild calcified atherosclerotic plaque. Mild tortuosity. Normal caliber. Abdominal aorta: Mild multifocal calcified atherosclerotic plaque. Normal in caliber. Celiac axis: Moderate calcified atherosclerotic plaque at the takeoff of the celiac axis with moderate associated luminal narrowing. No poststenotic dilatation or hypertrophy of the upper abdominal collaterals to suggest that this is hemodynamically significant. Left gastrohepatic trunk, an anatomic variant. Superior mesenteric artery: Mild mixed plaque at its takeoff with mild associated luminal narrowing (series 2, slice 52). Otherwise normal course and caliber. Right renal artery: Duplicated right renal artery. The superior moiety is normal in course and caliber. The inferior more has moderate calcified plaque at its takeoff with moderate associated luminal narrowing. No asymmetric perfusion of the right kidney to suggest that this is hemodynamically significant. Left renal artery: Solitary. Mild calcified atherosclerotic plaque at its takeoff with mild associated luminal narrowing. Inferior mesenteric artery: Normal course caliber. Visualized right common iliac artery: Mild multifocal calcified atherosclerotic plaque without substantive luminal narrowing. Visualized left common iliac artery: Mild calcified atherosclerotic plaque proximally with mild associated luminal narrowing. Remainder visualized arteries are unremarkable. Full evaluation of systemic and portal venous structures limited by contrast bolus timing. No abdominal adenopathy. Musculoskeletal: Stimulator device within the subcutaneous fat overlying the left lower quadrant. Lead coursing along the subcutaneous fat entering the thecal sac posterior to L2 vertebral body with tip terminating posterior to T10-T11 intervertebral disc. 2.9 x 1.0 cm diameter intramuscular lipoma posterior lateral left transverse abdominis (series 2, slice 80). Postsurgical changes of posterior decompression L3-L4, discectomy L2-L5 status post placement of intervertebral spacing devices, and posterior yony and screw fixation L3-L5 with adjacent osseous bar formation. Hardware intact without evidence of fracture or loosening. Moderate degenerative changes visualized lumbar spine. Moderate degenerative changes of the bilateral sacroiliac joints with partial in close of the right sacral iliac joint. Osteopenia. No suspicious osseous or soft tissue structure. IMPRESSION: 1. Mild multifocal atherosclerotic plaque throughout the abdominal aorta and its branches without evidence of mesenteric ischemia. 2. Apparent filling defect within a right lower lobe posterior and medial subsegmental pulmonary arteries suspicious for pulmonary arterial embolism. Recommend further evaluation with CT PE protocol. 3. Two nonobstructing calculi right kidney collecting system measuring up to 4 mm in diameter within the right kidney upper pole collecting system. 4. Small duodenal diverticulum. Calcified diverticulum distal descending colon without evidence of acute diverticulitis. CRITICAL FINDING: The above findings were called to Dr. Valencia at 9:50 AM on 03/14/2018. The report will be addended after discussing the findings and recommendations with the physician. [id number] Procedure Note Hm Interface, Radiology Results Incoming - 03/14/2018 9:55 AM CDT EXAM: CT ANGIOGRAM ABDOMEN W WO CONTRAST INDICATION: R10.33 Periumbilical pain, I70.0 Atherosclerosis of aorta, Mesenteric ischemia chronic, abd pain ischemia weight loss COMPARISON: CT abdomen pelvis study contrast dated 05/18/2018. TECHNIQUE: After administration of iodinated contrast intravenously, axial CT images of the abdomen and pelvis were obtained. Coronal and sagittal reformations were obtained. 3-D volumetric reconstruction of the arterial system was obtained. Iterative reconstruction and/or automated exposure control techniques were employed to reduce radiation dose. FINDINGS: Limited chest: Visualized portions of the esophagus, heart, pericardium are normal. No adenopathy visualized portions of the chest. Minimal linear opacity dependent right lower lung, discoid atelectasis versus scar. Otherwise, visualized lung bases are clear. Apparent filling defect within a right lower lobe posterior and medial subsegmental pulmonary artery (series 2, slice 1), suspicious for pulmonary arterial embolism. Recommend further evaluation with CT PE protocol. Abdomen: 1.4 similar diameter simple cyst upper middle lobe of the liver, segment IV a (series 2, slice 17). 2.0 cm diameter simple cyst anterior inferior right lobe of liver, segment 5 (series 2, slice 43). Subcentimeter hypodensities within the upper left lobe of liver, segment 2, too small to definitively characterize but statistically likely to be simple cysts or hemangiomas. 2 mm diameter calcified granuloma anterior inferior right lobe liver, segment 5 (series 2, slice 43). Subtle hypodensity of the liver adjacent to falciform lumen, compatible with focal fatty infiltration. Status post cholecystectomy. Common bile duct measures up to 1.0 cm in maximal coronal diameter, which is the upper limits of normal status post cholecystectomy. Mild diffuse atrophy of the pancreas. Multiple calcified granulomas scattered throughout the spleen. Otherwise, spleen is normal. Bilateral adrenals are normal. Mild nonspecific perinephric fat stranding bilaterally. 4 mm diameter nonobstructing calculus right kidney upper pole collecting system (series 2, slice 44). Punctate nonobstructing calculus right kidney midpole collecting system) series 2, slice 50). Otherwise, kidneys are normal. Stomach is mostly decompressed is full evaluation of its wall. 1.9 x 1.2 cm diameter diverticulum anteromedial aspect second portion duodenum (series 2, slice 57). Otherwise, duodenum is normal. Remainder visualized small bowel is normal. Appendix not definitively visualized and may be surgically absent. Calcified diverticulum distal descending colon. No evidence of acute diverticulitis. Otherwise visualized portions of the colon are normal. Limited pelvis: Unremarkable. Vascular: Descending thoracic aorta: Mild calcified atherosclerotic plaque. Mild tortuosity. Normal caliber. Abdominal aorta: Mild multifocal calcified atherosclerotic plaque. Normal in caliber. Celiac axis: Moderate calcified atherosclerotic plaque at the takeoff of the celiac axis with moderate associated luminal narrowing. No poststenotic dilatation or hypertrophy of the upper abdominal collaterals to suggest that this is hemodynamically significant. Left gastrohepatic trunk, an anatomic variant. Superior mesenteric artery: Mild mixed plaque at its takeoff with mild associated luminal narrowing (series 2, slice 52). Otherwise normal course and caliber. Right renal artery: Duplicated right renal artery. The superior moiety is normal in course and caliber. The inferior more has moderate calcified plaque at its takeoff with moderate associated luminal narrowing. No asymmetric perfusion of the right kidney to suggest that this is hemodynamically significant. Left renal artery: Solitary. Mild calcified atherosclerotic plaque at its takeoff with mild associated luminal narrowing. Inferior mesenteric artery: Normal course caliber. Visualized right common iliac artery: Mild multifocal calcified atherosclerotic plaque without substantive luminal narrowing. Visualized left common iliac artery: Mild calcified atherosclerotic plaque proximally with mild associated luminal narrowing. Remainder visualized arteries are unremarkable. Full evaluation of systemic and portal venous structures limited by contrast bolus timing. No abdominal adenopathy. Musculoskeletal: Stimulator device within the subcutaneous fat overlying the left lower quadrant. Lead coursing along the subcutaneous fat entering the thecal sac posterior to L2 vertebral body with tip terminating posterior to T10-T11 intervertebral disc. 2.9 x 1.0 cm diameter intramuscular lipoma posterior lateral left transverse abdominis (series 2, slice 80). Postsurgical changes of posterior decompression L3-L4, discectomy L2-L5 status post placement of intervertebral spacing devices, and posterior yony and screw fixation L3-L5 with adjacent osseous bar formation. Hardware intact without evidence of fracture or loosening. Moderate degenerative changes visualized lumbar spine. Moderate degenerative changes of the bilateral sacroiliac joints with partial in close of the right sacral iliac joint. Osteopenia. No suspicious osseous or soft tissue structure. IMPRESSION: 1. Mild multifocal atherosclerotic plaque throughout the abdominal aorta and its branches without evidence of mesenteric ischemia. 2. Apparent filling defect within a right lower lobe posterior and medial subsegmental pulmonary arteries suspicious for pulmonary arterial embolism. Recommend further evaluation with CT PE protocol. 3. Two nonobstructing calculi right kidney collecting system measuring up to 4 mm in diameter within the right kidney upper pole collecting system. 4. Small duodenal diverticulum. Calcified diverticulum distal descending colon without evidence of acute diverticulitis. CRITICAL FINDING: The above findings were called to Dr. Valencia at 9:50 AM on 03/14/2018. The report will be addended after discussing the findings and recommendations with the physician. [facility]-[id number] [facility] Organization Address City/State/Zipcode Phone Number [facility] [address] [place] [address] * CT Abdomen Pelvis W Contrast (03/08/2018 8:51 PM CDT) Narrative Performed At EXAMINATION:[facility]:ABD PAIN FOR 3 WEEKS TECHNIQUE: Multiple axial images of the abdomen and pelvis were obtained following intravenous administration of iodinated contrast. Sagittal and coronal computerized reformatted images were also obtained. CT images were obtained using low-dose technique with automated exposure control. COMPARISON:CT from 05/13/2011 IMPRESSION: 1.Status post cholecystectomy. Common bile duct measures up to 6 mm. There is minimal stranding along the liver capsule in the gallbladder fossa and small foci of intraperitoneal free air primarily in the upper abdomen related to recent cholecystectomy. No fluid collection. 2.There are several small cysts in the liver measuring up to 1.4 cm. Spleen is normal in size with calcified granuloma. Pancreas, adrenal glands and left kidney are unremarkable. 3 mm and 1 mm calyceal stones are present in the upper pole of the right kidney. 3.There is atherosclerotic calcification of aorta without aneurysm. There is no abdominal or pelvic adenopathy or ascites. 4.There is no intestinal obstruction. Several diverticula noted in the sigmoid colon. No bowel wall thickening or pericolic inflammation identified. Appendix not seen. 5.Bladder is nondistended. Prostate appears small. 6.Left hip arthroplasty present with associated streak artifact. There are post surgical changes with pedicular screws and decompression surgery in the lower lumbar spine. Implanted electronic device noted in the anterior left pelvis. Lung bases are clear. Summary: No acute abnormality noted in the abdomen and pelvis. Incidental findings as noted above. [facility]-[id number] Procedure Note Interface, Radiology Results Incoming - 03/08/2018 9:15 PM CDT EXAMINATION: CT ABDOMEN PELVIS W CONTRAST CLINICAL HISTORY: ABD PAIN FOR 3 WEEKS TECHNIQUE: Multiple axial images of the abdomen and pelvis were obtained following intravenous administration of iodinated contrast. Sagittal and coronal computerized reformatted images were also obtained. CT images were obtained using low-dose technique with automated exposure control. COMPARISON: CT from 05/13/2011 IMPRESSION: 1. Status post cholecystectomy. Common bile duct measures up to 6 mm. There is minimal stranding along the liver capsule in the gallbladder fossa and small foci of intraperitoneal free air primarily in the upper abdomen related to recent cholecystectomy. No fluid collection. 2. There are several small cysts in the liver measuring up to 1.4 cm. Spleen is normal in size with calcified granuloma. Pancreas, adrenal glands and left kidney are unremarkable. 3 mm and 1 mm calyceal stones are present in the upper pole of the right kidney. 3. There is atherosclerotic calcification of aorta without aneurysm. There is no abdominal or pelvic adenopathy or ascites. 4. There is no intestinal obstruction. Several diverticula noted in the sigmoid colon. No bowel wall thickening or pericolic inflammation identified. Appendix not seen. 5. Bladder is nondistended. Prostate appears small. 6. Left hip arthroplasty present with associated streak artifact. There are post surgical changes with pedicular screws and decompression surgery in the lower lumbar spine. Implanted electronic device noted in the anterior left pelvis. Lung bases are clear. Summary: No acute abnormality noted in the abdomen and pelvis. Incidental findings as noted above. [facility]-[id number] Performing Organization Address City/State/Zipcode Phone Number [facility] [address] [place] [phone] * Lactic acid level, SEPSIS - Now and repeat 2x every 3 hours (03/08/2018 7:47 PM CDT) Lactic acid 1.2 0.5 - 2.2 mmol/L [facility] DEPARTMENT OF PATHOLOGY AND GENOMIC MEDICINE Specimen Plasma specimen Performing Organization Address City/State/Zipcode Phone Number [facility] DEPARTMENT OF [address] [place] [phone] PATHOLOGY AND GENOMIC MEDICINE * Alcohol level, blood (03/08/2018 7:47 PM CDT) Alcohol None Detected mg/dL [facility] DEPARTMENT OF Comment: PATHOLOGY AND Normal GENOMIC MEDICINE None Detected Legal Intoxication in [place]80 mg/dL (0.08%) - Whole Blood Toxic Concentration 200 mg/dL (0.2%) Potentially Fatal3 50 - 500 mg/dL (0.35 - 0.5%) Alcohol percent None Detected % [facility] DEPARTMENT OF PATHOLOGY AND GENOMIC MEDICINE Specimen Plasma specimen Performing Organization Address [facility] Phone Number [facility] DEPARTMENT [address] [address] PATHOLOGY AND GENOMIC MEDICINE after 06/13/2017 Insurance Payer Benefit Subscriber ID Type Phone Address Plan / Group MEDICARE RAILROAD MEDICARE xxxxxxxxxxx Medicare RAILROAD UHC UNITED xxxxxxxxx [facility] INDEMNITY Advance Directives Patient has advance care planning documents on file. For more information, treva burkett contact: Osmin Duran [address] [place] [address]
--- OUTSIDE RECORDS SUMMARY | 2018-06-14 15:28 | XMS REPORT | Continuity of Care Document ---
Author Author [facility] Interface Address Unknown Phone Unavailable Problems Problem Status Onset Date Classification Date Reported Comments Source 011.90 Active [facility] PULMONARY TB NOS-UNSPEC Active [facility] Medications Medication Details Route Status Patient Instructions Ordering Provider Order Date Source Allergies, Adverse Reactions, Alerts Substance Category Reaction Severity Reaction type Status Date Reported Comments Source Immunizations Immunization Date Given Site Status Last Updated Comments Source Results Order Name Results Value Reference Range Date Interpretation Comments Source IMMUNOLOGY Quantiferon - TB Gold NEGATIVE NEGATIVE 09/27/2011 NA 1Result Comment: Negative test result. M. tuberculosiscomplex infection unlikely. [facility] IMMUNOLOGY NIL 0.05 [iU]/mL 09/27/2011 NA [facility] IMMUNOLOGY Mitogen - NIL null 09/27/2011 NA [facility] IMMUNOLOGY TB - NIL 0.02 [iU]/mL 09/27/2011 NA 2Result Comment: The Nil value adjusts for patient sample background,heterophile antibody effects, or non-specific IFN. TheMitogen serves as a patient positive control. The result"Positive", "Negative", or "Indeterminate" is calculatedfrom these values using an FDA-approved algorithm run on[employer]rec[employer] Engine software. Test Performed at:[facility] [address] [address] LAKEISHA WALL M.D. [facility] Vital Signs Vital Sign Value Date Comments Source Encounters Location Location Details Encounter Type Encounter Number Reason For Visit Attending Provider ADM Date DC Date Status Source [facility] Outpatient [id number] 011.90 YESI MEZA 09/27/2011 Active [facility] Procedures Procedure Code Date Perfomer Comments Source
[2018-06-14] MEDS ORDERED: MIRALAX17 GM (15:54)
[2018-06-14] MEDS ORDERED: DILAUDID PUMP (15:54)
== END 2018-06-14 16:00 | disposition home or self-care (01) ==
LOC: FSED 15:25
DX: K59.00 Constipation, unspecified (principal); M54.5 Low back pain; G89.29 Other chronic pain
CPT/HCPCS: 99283